=== PATIENT | male | born 1965 | race Caucasian/White ===

== ENCOUNTER 2019-12-15 12:45 | Outpatient (CLI) | payer MEDICARE, MEDICAID, SELFPAY ==
--- NOTE | ~2019-12-15 | CT_ITS ---
EXAMINATION: CT lung screening DATE: 12/15/2019 13:17 INDICATION: Lung cancer screening TECHNIQUE: Computed tomography (CT) of the chest was performed without intravenous contrast. The dose -length product was 298.88 mGy-cm. Automated exposure control and iterative reconstruction technique were employed. COMPARISON: None FINDINGS: No thoracic lymphadenopathy. Heart size normal. No pleural or pericardial effusion. There i s atherosclerosis of the coronary arteries. There is mild emphysema. There are a few small 2-3 mm gerald undglass nodules in the upper lobes. No focal airspace consolidation. No pneumothorax. No endobronchi al lesions. There are multiple mild wedge compression deformities of the thoracic spine, likely chron ic. IMPRESSION: 1. Lung-RADS category 2: Benign appearance or behavior. Continue annual screening with noncontrast lo w-dose chest CT in 12 months. Reviewed, dictated and finalized at location A. UCTION PLANNER IMPRESSION: 1. Lung-RADS category 2: Benign appearance or behavior. Continue annual screeni ng with noncontrast low-dose chest CT in 12 months.
== END 2019-12-15 12:46 | disposition home or self-care (01) ==
LOC: CHSIMG 12:47
PROVIDERS: PCP Internal Medicine; Visit Provider Internal Medicine
DX: Z12.2 Encounter for screening for malignant neoplasm of respiratory organs (principal); Z87.891 Personal history of nicotine dependence
CPT/HCPCS: G0297

== ENCOUNTER 2021-03-13 00:23 | Emergency (ER) | payer MEDICARE, MEDICAID, SELFPAY ==
[2021-03-13 00:23] VITALS: BP 160/96; PULSE 83; RESP 20; TEMP 36.1; O2SAT 98
--- NOTE | 2021-03-13 00:36 | ED.UPPEXIN ---
HPI - Extremity Injury (Upper) General Chief Complaint: Extremity Injury, Upper Stated Complaint: PAIN Source: patient and family Mode of arrival: ambulatory Limitations: no limitations History of Present Illness HPI narrative: This is a 55-year-old gentleman that presents with some left arm pain with numbness into his fingers with neck pain and stiffness has started earlier this evening has good range of motion of his arm although it is limited secondary to pain and numbness in his 1st 2 fingers. No known injuries no fever chills no blurry vision no headache no nausea or vomiting. MD complaint: injury to: left Onset (ago): hour(s) Other injuries: none Handedness: right Place: home Severity: moderate Severity scale (1-10): 6 Relieving factors: none Exacerbating factors: none Related Data Home Medications Medication Instructions Recorded Confirmed aspirin 81 mg tablet,delayed 81 mg PO DAILY 03/01/21 03/13/21 release atorvastatin 40 mg tablet 40 mg PO DAILY 03/01/21 03/13/21 clopidogrel 75 mg tablet 75 mg PO DAILY 03/01/21 03/13/21 dexlansoprazole 30 mg 30 mg PO DAILY 03/01/21 03/13/21 capsule,biphase delayed release fenofibrate 160 mg tablet 160 mg PO DAILY 03/01/21 03/13/21 lamotrigine 300 mg tablet,extended See Rx Instructions PO DAILY 03/01/21 03/13/21 release 24 hr metformin 500 mg tablet,extended 500 mg PO BID 03/01/21 03/13/21 release 24 hr metoprolol succinate 50 mg 50 mg PO DAILY 03/01/21 03/13/21 tablet,extended release 24 hr topiramate 100 mg tablet 100 mg PO BID 03/01/21 03/13/21 Allergies Allergy/AdvReac Type Severity Reaction Status Date / Time pine Allergy unknown Uncoded 03/01/21 13:46 Review of Systems Review of Systems: All systems reviewed & are unremarkable except as noted in HPI and below PMFSH Past Medical History Medical History Seizures Social History Social History Smoking status: Current every day smoker Substance use: never Exam Const: General: no acute distress Orientation/consciousness: patient oriented x3 HENMT: Head: normal to inspection Eyes: Conjunctivae: conjunctivae normal Pupils: Equal, round and reactive pupils present Neck: Neck: normal visual inspection, no lymphadenopathy and no meningeal signs Chest: Chest palpation & inspection: normal inspection of the chest Resp: Effort & Inspection: normal respiratory effort Auscultation: clear to auscultation bilaterally Cardio: Rate: regular rate Rhythm: regular rhythm GI: GI Palp: Yes Soft to palpation Percussion: Yes normal to percussion Back/Spine/Pelvis: Back: no CVA tenderness Skin: General skin exam: normal color Rashes: no rashes Neuro: General: patient oriented x3, moves all extremities, no meningeal signs and no focal motor deficits Extrem: General: normal to inspection and no pedal edema Other: reduced range of motion in his left arm with empty can sign limited range of motion in the rotator cuff with some pain and tenderness in the left paracervical area with numbness and tingling in his 1st and 2nd finger Psych: Appearance: grossly normal Mental Status: mental status grossly normal Affect: normal affect Thought content: Yes Normal thought content present Course Course Emergency Course: patient received Toradol which offered moderate pain relief and advised him to follow-up with his primary care physician. Critical Care Time Critical Care Time Critical Care Time: No Discharge Plan Discharge Clinical Impression: Cervical radiculopathy Patient Disposition: Home, Self-Care Condition: Stable Instructions: Antibiotic Form, Cervical Radiculopathy (ED) Additional Instructions: take medicine as prescribed and follow-up with primary care physician within 1 week for further evaluation and treatment. Prescriptions: New oxycodone-acetaminophen [Per
[2021-03-13] MEDS: KETOROLAC (*BKC) 60 MG/2 ML VIAL IM (00:39)
[2021-03-13 00:49] VITALS: BP 160/96; PULSE 83; RESP 20; TEMP 36.1; O2SAT 97
== END 2021-03-13 00:57 | disposition home or self-care (01) ==
PROVIDERS: Emergency Provider Emergency Medicine; PCP Internal Medicine
DX: M54.12 Radiculopathy, cervical region (principal)
CPT/HCPCS: 96372; 99283; J1885

== ENCOUNTER 2021-09-07 15:01 | Outpatient (CLI) | payer MEDICARE, MEDICAID, SELFPAY ==
--- NOTE | ~2021-09-07 | CT_ITS ---
EXAMINATION: CT lung screening DATE: 09/07/2021 15:20 INDICATION: Personal history of tobacco dependence, current smoker with 36 pack year history TECHNIQUE: Computed tomography (CT) of the chest was performed without intravenous contrast. The dose -length product (DLP) was 252.94 mGy-cm. Automated exposure control and iterative reconstruction tech [place] were employed. COMPARISON: 12/15/2019 FINDINGS: There is mild emphysema. There are small stable to 3 mm nodules in the upper lobes. No new or suspicious pulmonary nodules identified. The lungs are free of acute opacities. There is no pleura l effusion or pneumothorax. No pathologically enlarged thoracic lymph nodes are identified. The heart size is normal. Calcified coronary artery atherosclerosis is noted. There is unchanged T4 compressio n fracture. IMPRESSION: 1. Lung-RADS category 2: Benign appearance or behavior. Continue annual screening with noncontrast lo w-dose chest CT in 12 months. Reviewed, dictated and finalized at location B. AST CLEANING MACHINE OPERATOR IMPRESSION: 1. Lung-RADS category 2: Benign appearance or behavior. Continue annual screeni ng with noncontrast low-dose chest CT in 12 months.
== END 2021-09-07 15:02 | disposition home or self-care (01) ==
LOC: CHSIMG 15:02
PROVIDERS: PCP Internal Medicine; Visit Provider Internal Medicine
DX: Z87.891 Personal history of nicotine dependence (principal)
CPT/HCPCS: 71271

== ENCOUNTER 2022-12-04 14:01 | Outpatient (CLI) | payer MEDICARE, MEDICAID, SELFPAY ==
--- NOTE | ~2022-12-04 | CT_ITS ---
EXAMINATION: CT lung screening DATE: 12/04/2022 14:20 INDICATION: Personal history of nicotine dependence, current smoker with 35 pack year history TECHNIQUE: Computed tomography (CT) of the chest was performed without intravenous contrast. The dose -length product (DLP) was 340.39 mGy-cm. Automated exposure control and iterative reconstruction tech Linkoveryque were employed. COMPARISON: 11/07/2020 FINDINGS: There is mild emphysema. The lungs are free of acute opacities. Again noted are stable nodu les of the upper lobes measuring up to 3 mm. No pathologically enlarged thoracic lymph nodes are iden tified. The heart size is normal. Calcified coronary artery atherosclerosis is noted. A chronic T4 co mpression fracture is again noted. IMPRESSION: 1. Lung-RADS category 2: Benign appearance or behavior. Continue annual screening with noncontrast lo w-dose chest CT in 12 months. Reviewed, dictated and finalized at location B. DEVELOPER IMPRESSION: 1. Lung-RADS category 2: Benign appearance or behavior. Continue annual screeni ng with noncontrast low-dose chest CT in 12 months.
== END 2022-12-04 14:02 | disposition home or self-care (01) ==
LOC: CHSIMG 14:03
PROVIDERS: PCP Internal Medicine; Visit Provider Internal Medicine
DX: Z12.2 Encounter for screening for malignant neoplasm of respiratory organs (principal); Z87.891 Personal history of nicotine dependence
CPT/HCPCS: 71271

== ENCOUNTER 2023-06-16 19:36 | Emergency (ER) | payer MEDICARE, MEDICAID, SELFPAY ==
[2023-06-16] VITALS (9 sets, daily range): BP systolic 101–142; BP diastolic 76–84; PULSE 63–78; RESP 14–20; TEMP 36.9–37; O2SAT 93–99
--- NOTE | ~2023-06-16 | XR_ITS ---
EXAMINATION: XR hip RT 2V w AP pelvis INDICATION: Right hip pain, initial encounter TECHNIQUE: AP view the pelvis and two views of the right hip are obtained. COMPARISON: None available FINDINGS: There is an acute subcapital fracture of the right femoral neck. The femoral heads are seat ed in their acetabula. No additional fracture is identified. Surgical clips are noted in the medial r ight thigh. IMPRESSION: 1. Acute subcapital right femoral neck fracture. Reviewed, dictated and finalized at location F.
[2023-06-16 19:46] LABS: Glucose Point of Care 126 mg/dl (65-105)
[2023-06-16] MEDS: KETOROLAC (*BKC) 60 MG/2 ML VIAL IM (20:22)
--- NOTE | 2023-06-16 20:25 | ECG_ITS ---
Measurements Intervals [place] Rate: 71 P: 55 ID: [id number] QRS: 29 QRSD: 91 T: 36 QT: 399 QTc: 434 Interpretive Statements SINUS RHYTHM LOW QRS VOLTAGE IN PRECORDIAL LEADS [QRS DEFLECTION < 1.0 mV IN CHEST LEADS] NONSPECIFIC T-WAVE FLATTENING POOR R-WAVE PROGRESSION/CANNOT EXCLUDE PREVIOUS ANTEROSEPTAL OH ABNORMAL ECG NO PREVIOUS ECG AVAILABLE FOR COMPARISON Electronically Signed On 06-17-2023 7:19:28 CDT by Ismael Love M.D.
--- NOTE | 2023-06-16 20:26 | PC.NURSE ---
2014-PT RETURNS FROM IMAGING VIA [facility]RETCH[facility], ESCORTED BY KAND[facility] TECH. 1957-PT TRANSPORTED VIA HOSPITAL STRETCHER, ESCORTED BY FROG FARMER.
--- NOTE | 2023-06-16 20:52 | PC.NURSE ---
2049-PHYSICIAN AT BEDSIDE DISCUSSING RESULTS AND PLAN OF CARE WITH PT.
[2023-06-16] MEDS: SODIUM CHLORIDE 0.9% IV 1,000 ML 999 ML IV CONT (21:04)
[2023-06-16] MEDS: MORPHINE SULFATE (*CRX) 4 MG/ML INJ IV PUSH (21:05)
--- NOTE | 2023-06-16 21:39 | ED.FALL ---
HPI - Fall General Chief Complaint: Fall Stated Complaint: Fall Source: patient and EMS Mode of arrival: EMS Limitations: physical limitation History of Present Illness HPI Narrative: this is 58-year-old male that presents from home after he called EMS after he sustained a ground level fall he tripped while in the garage and caused pain and tenderness to the medial aspect of his right with decreased range of motion secondary to pain that he rates at about a 10/10, patient denies any other injuries, no head injury no nausea vomiting no loss of consciousness no headaches no blurry vision no back pain no abdominal pain no chest pain. complaint: fall Onset (ago): hour(s) Fall from: standing Fall witnessed: no Place fall occurred: home Loss of consciousness: none Prolonged down time: no Related Data Home Medications Medication Instructions Recorded Confirmed aspirin 81 mg tablet,delayed 81 mg PO DAILY 03/01/21 06/16/23 release atorvastatin 40 mg tablet 40 mg PO DAILY 03/01/21 06/16/23 clopidogrel 75 mg tablet 75 mg PO DAILY 03/01/21 06/16/23 fenofibrate 160 mg tablet 160 mg PO DAILY 03/01/21 06/16/23 metformin 500 mg tablet,extended 500 mg PO BID 03/01/21 06/16/23 release 24 hr metoprolol succinate 50 mg 50 mg PO DAILY 03/01/21 06/16/23 tablet,extended release 24 hr carbamazepine 400 mg 400 mg PO BID 06/16/23 06/16/23 tablet,extended release,12 hr lamotrigine 200 mg tablet 300 mg PO BID 06/16/23 06/16/23 Allergies Allergy/AdvReac Type Severity Reaction Status Date / Time pine Allergy unknown Uncoded 03/30/23 13:55 Review of Systems Review of Systems: All systems reviewed & are unremarkable except as noted in HPI and below PMFSH Past Medical History Medical History Seizures Social History Social History Smoking status: Current every day smoker Alcohol intake: never Substance use: current Substance use type: marijuana Lack of Transportation: No Lack of Food: Never True Current Housing: I Have Housing Concerned About Future Housing: No Difficulty Paying Gas/Electric Bills: No Difficulty Paying for Meds: No Currently Unemployed: No Education: High School Diploma/GED Difficulty w/ Childcare or Family Care: No Living arrangements: with family Exam Const: General: no acute distress and ill appearing Limitations: no limitations Eyes: Conjunctivae: conjunctivae normal EOM: EOMs intact bilaterally Direct Ophthalmoscopy: no photophobia Neck: Neck: normal visual inspection Resp: Effort & Inspection: normal respiratory effort Auscultation: clear to auscultation bilaterally Cardio: Rate: regular rate Rhythm: regular rhythm GI: GI Palp: Yes Soft to palpation Auscultation: normal bowel sounds : General: Yes bladder normal to palpation Back/Spine/Pelvis: Back: no CVA tenderness Skin: General skin exam: normal color Rashes: no rashes Neuro: General: patient oriented x3, no meningeal signs and no focal motor deficits Cranial nerves: Yes Nystagmus not present Speech: normal speech Psych: Mental Status: mental status grossly normal Affect: normal affect Course Course Emergency Course: X-ray performed shows a fracture of the right hip EKG performed shows normal sinus rhythm, and labs reviewed with patient. The patient received IV fluids, IV Toradol and IV morphine for pain control. patient had blood work and his labs are unremarkable except for white count of 20.7, spoke to orthopedist and he accepted the patient for transfer as a consult and advised against antibiotics at this time. Spoke to hospitalist at [facility] which accepted the patient for transfer. Vital Signs Vital signs: Vital Signs Temperature 36.9 C 06/16/23 19:36 Temperature 37.0 C 06/16/23 19:37 Pulse Rate 63 06/16/23 19:37 Respiratory Rate 14 06/16/23 19:37
[2023-06-16 21:57] LABS: Hematocrit 42.9 % (40.0-54.0); Hemoglobin 13.8 g/dL (14.0-18.0); Mean Corpuscular HGB Conc 32.2 g/dL (32.0-36.0); Mean Corpuscular Hemoglobin 31.4 pg (27.0-31.0); Mean Corpuscular Volume 97.7 fL (78.0-102.0); Mean Platelet Volume 9.2 fl (8.7-11.0); Platelet Count Result 284 K/mm3 (150-420); Red Blood Count 4.39 M/mm3 (4.70-6.10); Red Cell Distribution Width 13.5 % (11.6-14.4)
[2023-06-16 22:07] LABS: White Blood Count 20.7 K/mm3 (4.8-10.8)
[2023-06-16 22:14] LABS: Alanine Aminotransferase 25 U/L (16-63); Albumin Level 3.7 g/dL (3.4-5.0); Alkaline Phosphatase 76 U/L (46-116); Anion Gap 10 mmol/L (8-16); Aspartate Amino Transferase 14 U/L (15-37); Bilirubin,Total 0.4 mg/dL (0.00-1.00); Blood Urea Nitrogen 19 mg/dL (7-18); Calcium 8.6 mg/dL (8.5-10.1); Carbon Dioxide 23 mmol/L (21-32); Chloride 104 mmol/L (98-108); Creatine Kinase 114 U/L (39-308); Estimated CRCL calculation 62 ml/min; Estimated Glomerular Filt Rate 59; Glucose 125 mg/dL (70-99); Osmolality Calculated 287 mOsm/kg (285-295); Potassium 3.9 mmol/L (3.5-5.1); Sodium 137 mmol/L (136-145); Total Protein 7.6 g/dL (6.4-8.2)
[2023-06-16 22:15] LABS: Partial Thromboplastin Time 27.3 SEC (23.90-30.70); Prothrombin Time 10.5 Seconds (9.50-12.10)
[2023-06-16 22:56] LABS: Band Neutrophils Percent 0 % (0-6); Eosinophils Absolute Manual 0.41 K/mm3 (0.02-0.5); Eosinophils Percent Manual 2 % (1-6); Lymphocytes Absolute Manual 1.24 K/mm3 (1.1-4.5); Lymphocytes Percent Manual 6 % (18-44); Monocytes Absolute Manual 0.41 K/mm3 (0.1-0.90); Monocytes Percent Manual 2 % (3-9); Neutrophils Absolute Manual 18.42 K/mm3 (1.3-6.7); Neutrophils Percent Manual 89 % (46-73); Total Cells Counted 100
[2023-06-16 22:57] LABS: Basophils Percent Manual 1 % (0-1); Platelet Estimate Adequate (Adequate); Schistocytes None Seen (NORMAL)
--- NOTE | 2023-06-16 23:36 | PC.NURSE ---
4650- PT SIGNIFICANT OTHER STATES LEAVING FOR THE NIGHT AT THIS TIME. SHE LEAVES A CONTACT NUMBER FOLLOWS; [phone],JULIANNA. 5776-PT SIGNIFICANT OTHER APPROACHES NURSING STATION AND INQUIRING FOR UPDATE AND PROVIDED WITH UPDATED PLAN OF CARE. SIGNIFICANT OTHER ALSO STATES PT EXPRESSING CONCERN FOR HAVING NIGHT MEDS (SPECIFICALLY SEIZURE MEDS) AND EATING. SILK OPENER ARRIVES TO BEDSIDE AND SPOKE WITH PT REGARDING CONCERNS. SILK OPENER REMINDED PT AGAINST EATING/DRINKING PER PHYSICIAN ORDERS DUE TO STATUS. PT VERBALIZED UNDERSTANDING. REGARDING PT MEDICATIONS. DR PEPPER MADE AWARE AND ADVISED HOME MEDICATIONS WOULD BE CONTINUED AT THE TIME OF TRANSFER/ADMISSION AT [facility]. SILK OPENER RELAYED INFORMATION TO PT AND HE VERBALIZED UNDERSTANDING. PT DENIES ANY ADDITIONAL NEEDS AT THIS TIME. CALL LIGHT REMAINS IN REACH.
[2023-06-17] VITALS: BP 144/91; PULSE 71; RESP 16; O2SAT 96
--- NOTE | 2023-06-17 00:24 | PC.NURSE ---
0024-[facility]BA[facility] ARRIVES TO ER
--- NOTE | 2023-06-17 00:36 | PC.NURSE ---
0035-PT TRANSFERRED TO EMS STRETCHER, WITHOUT INCIDENT. PT HAS HIS BLACK ANDROID PHONE IN HIS POSSESSION AT TIME OF TRANSFER. PT SIGNIFICANT OTHER HAS OPTED TO TAKE PT CLOTHING WITH HER WHEN SHE LEFT EARLIER IN THE NIGHT. PT IS IN NAD AT TIME OF TRANSFER.
--- NOTE | 2023-06-23 12:46 | PC.NURSE ---
blood culture reviewed, no growth after 5 days
== END 2023-06-17 00:35 | disposition short-term general hospital (02) ==
PROVIDERS: Emergency Provider Emergency Medicine; PCP Internal Medicine
DX: S72.011A Unspecified intracapsular fracture of right femur, initial encounter for closed fracture (principal); W01.0XXA Fall on same level from slipping, tripping and stumbling without subsequent striking against object, initial encounter; G40.909 Epilepsy, unspecified, not intractable, without status epilepticus; F17.210 Nicotine dependence, cigarettes, uncomplicated; F12.90 Cannabis use, unspecified, uncomplicated; Z79.84 Long term (current) use of oral hypoglycemic drugs; Z79.02 Long term (current) use of antithrombotics/antiplatelets; Z79.82 Long term (current) use of aspirin
CPT/HCPCS: 36415; 73502; 80053; 82550; 82948; 83605; 85025; 85610; 85730; 87040; 93005; 96361; 96372; 96374; 99285; J1885; J2270; J7030

== ENCOUNTER 2023-06-17 01:33 | Inpatient (IN) | payer MEDICARE, MEDICAID, SELFPAY ==
[2023-06-17] VITALS (7 sets, daily range): BP systolic 129–164; BP diastolic 75–93; PULSE 62–83; RESP 12–16; TEMP 36–37.5; O2SAT 91–97; BMI 29.5
--- NOTE | ~2023-06-17 | XR_ITS ---
EXAMINATION: XR hip RT min 2V DATE: 06/18/2023 16:57 INDICATION: Bipolar type right hip hemiarthroplasty TECHNIQUE: Anteroposterior and cross-table lateral views of the right hip were obtained. COMPARISON: 06/16/2023 FINDINGS: Interval resection of the fractured right femoral head and neck and placement of a noncemented bipola r type right hip hemiarthroplasty which appears well seated in near-anatomic alignment. No other frac tures identified. Surgical clips at the right groin and proximal thigh which could be related to prio r saphenous vein graft harvest. IMPRESSION: 1. Newly placed bipolar type right hip hemiarthroplasty in near-anatomic alignment, negative for post operative purposes. Reviewed, dictated and finalized at location A. IMPRESSION: 1. Newly placed bipolar type right hip hemiarthroplasty in near-anatomic alignm ent, negative for postoperative purposes.
--- NOTE | ~2023-06-17 | XR_ITS ---
EXAMINATION: XR chest 1V portable DATE: 06/17/2023 05:59 INDICATION: Leukocytosis. TECHNIQUE: A single frontal view of the chest was obtained. COMPARISON: Chest CT 12/04/2022 FINDINGS: There is no pneumonia, pleural effusion, or pneumothorax. The heart size is normal. IMPRESSION: 1. No acute cardiopulmonary disease. Reviewed, dictated and finalized at location A.
--- NOTE | ~2023-06-17 | US_ITS ---
US renal BI 06/18/2023 08:20 Procedure: Realtime transabdominal ultrasound of the kidneys and bladder. Indication: Urinary outflow obstruction Comparison: No prior studies for comparison. Findings: Renal echotexture is normal bilaterally without hydronephrosis, contour deforming mass or r enal calculus. The right kidney measures 11.4 cm and left kidney measures 13.5 cm. There is a Madison c atheter in the bladder. Incidental note is made of hepatomegaly with fatty infiltration of the liver. Impression: 1: Unremarkable renal ultrasound. No stones, masses or hydronephrosis. 2: Hepatomegaly with diffuse fatty infiltration. Reviewed, dictated and finalized at location B. Impression: 1: Unremarkable renal ultrasound. No stones, masses or hydronephrosis. 2: Hepatomegaly with diffuse fatty infiltration.
--- NOTE | 2023-06-17 01:36 | PC.NURSE ---
This patient, Wally Powell, was admitted to [address] [place] [address] Room 330-02. Patient/family oriented to hospital policies and general routines including ID bracelet, bed and alarms, visiting hours, pain management, procedures, bathroom and other care routines, personal items, smoking policy, room service/diet, and visiting hours. Information on how to activate the Rapid Response Team has been discussed. Patient/Family are encouraged to report perceived risks to care and to ask questions if they do not understand what they are told or what they should do.
[2023-06-17] MEDS: MORPHINE SULFATE (*CRX) 4 MG/ML INJ IV PUSH ×5 (02:02→22:05)
[2023-06-17] MEDS: SODIUM CHLORIDE 0.9% IV 1,000 ML 100 ML IV CONT ×3 (02:35→22:08)
--- NOTE | 2023-06-17 05:49 | PM.IMHP ---
H&P: HPI History of Present Illness Date/Time: 06/17/23 05:49 Chief Complaint: Fall with hip pain Narrative: 58-year-old male with a past medical history of hyperlipidemia, seizure disorder and peripheral artery disease who presented to the ER at [facility] via EMS after a fall. Patient reportedly tripped over a piece of lawn equipment and fell. He had immediate pain in his right hip. He tried to get up and walk with a walker that he had at the house. He was unable to do so after about 15 or 20 minutes of trying although he did make it up cross the garage. The pain was unbearable and he decided to call for help. He went to [facility]. He was evaluated and found to have a right nondisplaced femoral neck fracture. He was transferred to our facility for further evaluation. At the outside facility he did receive some morphine. He also received some IV fluids. His white count at the outside facility was 20,000 without a shift. He he denies any lightheadedness prior to his fall he denies any chest pain. He has not had any cough or congestion. He is a chronic smoker. He does have a history of a bilateral of fem-pop bypass but has bounding pulses in lower extremities. He denies any claudication symptoms. He denies any wounds. He has not had any fevers or chills. Review of Systems Review of Systems: 12 systems were reviewed with pertinent positives and negatives per HPI. Except as documented in the HPI, all other systems were reviewed and are negative. He does have peripheral neuropathy. [facility] Past Medical History Medical History (Updated 06/18/23 @ 00:01 by Emilio Valentine) BPH (benign prostatic hyperplasia) Closed subcapital fracture of neck of right femur May 2023 Diabetic peripheral neuropathy Essential hypertension Hyperlipidemia Peripheral artery disease Seizures Type 2 diabetes mellitus Surgical History Surgical History History of femoropopliteal bypass Bilateral approximately 2014 Family History Family History Father Age older than 80 years Mother Diabetes mellitus Social History Social History Social History: He lives with his significant other of 12 years. They have 2 dogs and 5 cats. He does not have any children. 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 He still smokes 1 pack of cigarettes per day and has done so since he was 15 years old. Code status: Full code Surrogate decision maker: Georgina Duff (significant other) Smoking packs per day: 1 Smoking cigarettes per day: 20.0 Years smoked: 43 Smoking pack-years: 43.00 Smoking status: Current every day smoker Tobacco type: cigarettes Alcohol intake: former Alcohol use details: He was an alcoholic but quit drinking 1997 Substance use: former Substance use type: marijuana and crack/cocaine Lack of Transportation: No Lack of Food: Never True Current Housing: I Have Housing Concerned About Future Housing: No Difficulty Paying Gas/Electric Bills: No Difficulty Paying for Meds: No Currently Unemployed: No Education: High School Diploma/GED Difficulty w/ Childcare or Family Care: No Living arrangements: with family Spiritual care concerns: No Meds Home Medications and Allergies Home Medications Medication Instructions Recorded Confirmed Type aspirin 81 mg tablet,delayed 81 mg PO HS 03/01/21 06/17/23 History release atorvastatin 40 mg tablet 40 mg PO DAILY 03/01/21 06/17/23 History clopidogrel 75 mg tablet 75 mg PO DAILY 03/01/21 06/17/23 History fenofibrate 160 mg tablet 160 mg PO DAILY 03/01/21 06/17/23 History metformin 500 mg tablet,extended 500 mg PO BID 03/01/2105/30
[2023-06-17 07:13] LABS: Basophils Absolute Auto 0.1 K/mm3 (0.0-0.1); Basophils Percent Auto 0.3 % (0.2-1.2); Eosinophils Absolute Auto 0.1 K/mm3 (0-0.3); Eosinophils Percent Auto 0.9 % (0-4.4); Hematocrit 40.8 % (42.0-52.0); Hemoglobin 12.8 g/dL (14.0-18.0); Immature Granulocyte Absolute 0.07 K/mm3 (0.00-0.031); Immature Granulocyte Percent A 0.5 % (0-0.5); Lymphocytes Absolute Auto 2.09 K/mm3 (0.9-3.2); Lymphocytes Percent Auto 14.3 % (18.3-44.2); Mean Corpuscular HGB Conc 31.4 g/dl (32-36); Mean Corpuscular Volume 98.8 fl (80-100); Mean Platelet Volume 9.3 fl (7.4-10.4); Monocytes Percent Auto 7.1 % (2.6-8.5); Neutrophils Absolute Auto 11.2 K/mm3 (1.3-6.7); Neutrophils Percent Auto 76.9 % (45.5-73.1); Platelet Count Result 238 k/mm3 (150-375); Red Blood Count 4.13 M/mm3 (4.6-6.20); Red Cell Distribution Width 13.8 % (11.5-14.5); White Blood Count 14.6 K/mm3 (4.5-10.0)
[2023-06-17 07:23] LABS: Anion Gap 6 mmol/L (8-16); Blood Urea Nitrogen 15 mg/dL (9-20); Calcium 8.4 mg/dL (8.4-10.2); Carbon Dioxide 24 mmol/L (22-30); Chloride 108 mmol/L (98-107); Estimated CRCL calculation 84 ml/min; Estimated Glomerular Filt Rate > 60; Glucose 121 mg/dL (65-110); Potassium 3.9 mmol/L (3.4-5.0); Sodium 138 mmol/L (137-145)
[2023-06-17 07:29] LABS: Glucose Point of Care 109 mg/dl (65-105)
--- NOTE | 2023-06-17 08:44 | PM.CNOR ---
Assessment and Plan Assessment and plan (1) Closed subcapital fracture of neck of right femur: Qualifiers: Encounter type: initial encounter Qualified Code(s): S72.011A - Unspecified intracapsular fracture of right femur, initial encounter for closed fracture Code(s): S72.011A - Unspecified intracapsular fracture of right femur, initial encounter for closed fracture Status: Acute Plan 58-year-old male with an acute subcapital femoral neck fracture right hip. His best course of treatment since this is [place] type 4 is going to be bipolar hip replacement. We discussed this in detail. Did review risks as well as potential complications and expected rehab. He has and creased risk for wound healing complications because of his peripheral vascular disease, smoking and poor dentition. The teeth will need to be addressed as an outpatient when he is able to. He is chronically on aspirin and Plavix. Has not had any since yesterday. Lovenox will be held today. He is anemic. Did have and markedly elevated white count which has come down. Probably demargination from the trauma. Plan on surgery tomorrow pending final medical clearance. Thank you for consultation. History of Present Illness HPI Consult date: 06/17/23 Consult reason: fracture Chief complaint: Right Femoral Neck Fx Narrative: 58-year-old male who fell at home yesterday suffering a displaced right femoral neck fracture. He was initially seen in the ER in [place] then transferred here for further evaluation and management. No other injuries with this occurrence. History significant for seizure disorder diagnosed at age [age]. Is also a pack per day smoker and has been so for many years. History of peripheral vascular disease and is status post lower extremity bypass surgery. Diabetic. Unknown last A1c. Review of Systems Review of Systems: 12 systems were reviewed with pertinent positives and negatives per HPI. Except as documented in the HPI, all other systems were reviewed and are negative. He does have peripheral neuropathy. Constitutional: Constitutional: Denies anorexia Eyes: Eyes: Denies irritation and Denies loss of vision ENT: Reports Normal hearing present Cardiovascular: Cardiovascular: Denies chest pain and Denies dyspnea on exertion Respiratory: Respiratory: Denies cough and Denies dyspnea on exertion Gastrointestinal: Gastrointestinal: Denies abdominal pain and Denies bloating Genitourinary: Genitourinary: Denies dysuria Musculoskeletal: Musculoskeletal: Denies arthralgias Integumentary/Breasts: Skin/Breast: Denies skin ulcer Neurologic: Reports Normal hearing present and Denies loss of vision Hematologic/Lymphatic: Hematologic/Lymphatic: Denies easy bleeding PMFSH Past Medical History Medical History (Updated 06/17/23 @ 08:51 by Christoph Mcleod MD) BPH (benign prostatic hyperplasia) Closed subcapital fracture of neck of right femur May 2023 Diabetic peripheral neuropathy Essential hypertension Hyperlipidemia Peripheral artery disease Seizures Type 2 diabetes mellitus Surgical History Surgical History History of femoropopliteal bypass Bilateral approximately 2014 Family History Family History Father Age older than 80 years Mother Diabetes mellitus Social History Social History Social History: He lives with his significant other of 12 years. They have 2 dogs and 5 cats. He does not have any children. 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 He still smokes 1 pack of cigarettes per day and has done so since he was 15 years old. Code status: Full code Surrogate decision maker: Georgina Duff (michael
[2023-06-17] MEDS: FENOFIBRATE 160 MG TABLET PO (08:55)
[2023-06-17] MEDS: lamoTRIgine 100 MG TABLET 300 MG PO (08:55)
[2023-06-17] MEDS: CARBAMAZEPINE XR 200 MG TAB.ER.12H 400 MG PO ×2 (08:55→22:02)
[2023-06-17] MEDS: ATORVASTATIN 40 MG TABLET PO (08:56)
[2023-06-17] MEDS: TAMSULOSIN HCL 0.4 MG CAPSULE PO (08:56)
[2023-06-17] MEDS: METOPROLOL SUCCINATE EXT REL 50 MG TABCR PO (08:56)
[2023-06-17] MEDS: TOPIRAMATE 100 MG TABLET PO ×2 (08:56→16:39)
[2023-06-17] MEDS: metFORMIN HCL XR 500 MG TAB.SR.24H PO ×2 (08:56→16:38)
[2023-06-17 11:08] LABS: Appearance Urine Clear (Clear); Bacteria Urine None Seen /hpf; Bilirubin Urine Negative (Negative); Blood Urine 1+ (Negative); Color Urine Yellow (Yellow); Glucose Urine UA Negative (Negative); Ketones Urine Negative (Negative); Leukocyte Esterase Ur Negative LEU/UL (Negative); Need Manual Microscopic Reviewed; Nitrate Urine Negative (Negative); Protein Urine Negative (Negative); Specific Grav Ur 1.019 (1.001-1.035); Squamous Epithelial Cell Urine Occasional /hpf (Few)
[2023-06-17 11:09] LABS: Add Urine Microscopic? YES
[2023-06-17 11:16] LABS: Glucose Point of Care 115 mg/dl (65-105)
--- NOTE | 2023-06-17 12:40 | PM.IMPN ---
Progress Note: A&P Assessment and Plan (1) Closed subcapital fracture of neck of right femur: Qualifiers: Encounter type: initial encounter Qualified Code(s): S72.011A - Unspecified intracapsular fracture of right femur, initial encounter for closed fracture Code(s): S72.011A - Unspecified intracapsular fracture of right femur, initial encounter for closed fracture Status: Acute Assessment and Plan: 06/17: Seen by orthopedics today plan for right bipolar hip replacement tomorrow. (2) Urinary retention due to benign prostatic hyperplasia: Code(s): N40.1 - Benign prostatic hyperplasia with lower urinary tract symptoms; R33.8 - Other retention of urine Status: Acute Assessment and Plan: 06/17: Postvoid residual 850 mL with palpable bladder distension. Nursing staff unable to pass Madison catheter x2, urology consulted. Appreciate assistance and catheter placement and management. (3) Type 2 diabetes mellitus: Qualifiers: Diabetes mellitus residential insulin use: without terminal superintendent use Diabetes mellitus complication status: with neurologic complications Diabetes mellitus complication detail: with polyneuropathy Qualified Code(s): E11.42 - Type 2 diabetes mellitus with diabetic polyneuropathy Code(s): E11.9 - Type 2 diabetes mellitus without complications Status: Acute Assessment and Plan: 06/17: ACHS fingerstick glucose with insulin correction. (4) Essential hypertension: Code(s): I10 - Essential (primary) hypertension Status: Acute Assessment and Plan: 06/17: Resume home medications. Stable at this time. Blood pressure reviewed on 06/17 (5) Smoking: Code(s): F17.200 - Nicotine dependence, unspecified, uncomplicated Status: Acute Assessment and Plan: Nicotine patch ordered. (6) Hyperlipidemia: Code(s): E78.5 - Hyperlipidemia, unspecified Status: Acute Assessment and Plan: Continue home medications (7) History of seizures: Code(s): Z87.898 - Personal history of other specified conditions Status: Acute Assessment and Plan: Continue home medications no evidence of current or recent seizure activity Plan Urology consult for catheter placement Orthopedics to take patient to OR tomorrow for Right Bipolar Hip Replacement Time Spent With Patient Time with patient: 25 - 35 minutes Subjective Date/time seen: 06/17/23 12:40 Interval history: 06/17: Patient was admitted overnight transfer from [facility] [place] with fall with right subcapital femoral neck fracture. Patient to go to the operating room tomorrow for bipolar hip replacement. It was noted that patient has severe urinary retention with postvoid residual of 850 mL earlier today. Madison catheter was ordered and nursing unable to pass after 2 attempts. Urology to be consulted reported as appreciate assistance. Patient denies any nausea vomiting constipation diarrhea chest pain shortness a breath fever or chills. He states he has right hip pain he tried to ambulate with walker at home for a little while before calling assistance. He states some mild lower abdominal discomfort but otherwise has no acute complaints. Review of Systems Review of Systems: All systems reviewed & are unremarkable except as noted in HPI and below Exam Narrative: GENERAL: Generally well appearing, alert and oriented, in no apparent distress. Patient responds to questions in 1-2 word answers. HEENT: Pupils are equally round and briskly reactive to light. Extraocular muscles are intact. Oral mucous membranes are moist without lesions. NECK: The patient has no noted JVD. No adenopathy is appreciated. CHEST/LUNGS: Lungs are clear bilaterally without rhonchi, rales, or wheezes. There is no subcutaneous air appreciated. There is no tenderness to the chest wall. HEART: The patient has a regular rate and rhythm. No murmurs, rubs, or gallops
--- NOTE | 2023-06-17 14:23 | WPDURCON ---
Assessment and Plan Assessment and plan (1) Urinary retention due to benign prostatic hyperplasia: Code(s): N40.1 - Benign prostatic hyperplasia with lower urinary tract symptoms; R33.8 - Other retention of urine Status: Acute Assessment and Plan: I was unable to advance a wire to the bladder thus after obtaining verbal consent from the patient, the penis was prepped with betadine prep solution, a well lubricated cystoscope was advanced atraumatically into the bladder. Through the working channel a glide wire was advanced into the bladder and coiled, the cystoscope was removed and a 16F [place] advanced over the wire and into the bladder. 10 cc of sterile water placed in the balloon. A false passage was noted in the penile urethra. 1200 mL of urine drained. Plan 1. Maintain catheter at least 3-5 days. 2. Consider antibiotics to cover pathogens for 3-5 days. 3. Consider starting tamsulosin 0.4 mg QHS. 4. Consider Renal US to ensure no hydronephrosis. 5. Follow up in office for BPH work up including PSA and NICOLETTE. Satinder Senior MD [facility] Consult Note HPI Date Seen: 06/17/23 Requesting Physician: Paulina Macdonald DO Primary Care Provider: Hoang Marrero MD Consult Narrative Narrative: Wally Powell is a 58-year-old male with a past medical history of hyperlipidemia, seizure disorder and peripheral artery disease who presented to the ER at [facility] via EMS after a fall.? Patient reportedly tripped over a piece of lawn equipment and fell.? He had immediate pain in his right hip and was found to have a right nondisplaced femoral neck fracture.? ? He does have a history of a bilateral of fem-pop bypass but has bounding pulses in lower extremities.? He denies any claudication symptoms.? He denies any wounds.? He has not had any fevers or chills. On the floor he was found to have retention of greater than 800 mL. Catheter placement attempted twice by nursing. He has had several small volume voids. He denies hematuria or other concern. Review of Systems Constitutional: Constitutional: Reports as per HPI Eyes: Eyes: Reports as per HPI ENT: Reports system reviewed and no additional complaints, except as documented Cardiovascular: Cardiovascular: Reports as per HPI Respiratory: Respiratory: Reports as per HPI Genitourinary: Genitourinary: Reports no additional male genitourinary complaints Musculoskeletal: Musculoskeletal: Reports no additional musculoskeletal complaints Integumentary/Breasts: Skin/Breast: Reports system reviewed and no additional complaints, except as docu Neurologic: Reports system reviewed and no additional complaints, except as documented Psychiatric: Psychiatric: Reports no additional psychiatric complaints [facility] Past Medical History Medical History (Updated 06/17/23 @ 14:26 by Art Garcia APRN) BPH (benign prostatic hyperplasia) Closed subcapital fracture of neck of right femur May 2023 Diabetic peripheral neuropathy Essential hypertension Hyperlipidemia Peripheral artery disease Seizures Type 2 diabetes mellitus Surgical History Surgical History History of femoropopliteal bypass Bilateral approximately 2014 Family History Family History Father Age older than 80 years Mother Diabetes mellitus Social History Social History Social History: He lives with his significant other of 12 years. They have 2 dogs and 5 cats. He does not have any children. 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 He still smokes 1 pack of cigarettes per day and has done so since he was 15 years old. Code status: Full code Surrogate decision maker: Georgina Martinez
[2023-06-17 16:23] LABS: Glucose Point of Care 125 mg/dl (65-105)
[2023-06-17 19:47] LABS: Glucose Point of Care 120 mg/dl (65-105)
[2023-06-17] MEDS: lamoTRIgine 100 MG TABLET 200 MG PO (22:02)
[2023-06-18] VITALS (15 sets, daily range): BP systolic 107–179; BP diastolic 62–86; PULSE 65–90; RESP 12–18; TEMP 36.2–37.3; O2SAT 93–100
[2023-06-18 06:51] LABS: Basophils Absolute Auto 0.1 K/mm3 (0.0-0.1); Basophils Percent Auto 0.4 % (0.2-1.2); Eosinophils Absolute Auto 0.1 K/mm3 (0-0.3); Eosinophils Percent Auto 0.6 % (0-4.4); Hematocrit 39.4 % (42.0-52.0); Hemoglobin 12.6 g/dL (14.0-18.0); Immature Granulocyte Absolute 0.05 K/mm3 (0.00-0.031); Immature Granulocyte Percent A 0.4 % (0-0.5); Lymphocytes Absolute Auto 2.05 K/mm3 (0.9-3.2); Lymphocytes Percent Auto 14.7 % (18.3-44.2); Mean Corpuscular Hemoglobin 31.3 pg (26-34); Mean Platelet Volume 9.3 fl (7.4-10.4); Monocytes Absolute Auto 1.1 K/mm3 (0.1-0.6); Monocytes Percent Auto 7.9 % (2.6-8.5); Neutrophils Absolute Auto 10.6 K/mm3 (1.3-6.7); Platelet Count Result 235 k/mm3 (150-375); Red Blood Count 4.02 M/mm3 (4.6-6.20); Red Cell Distribution Width 13.7 % (11.5-14.5)
[2023-06-18] MEDS: MORPHINE SULFATE (*CRX) 4 MG/ML INJ IV PUSH ×2 (07:02→21:30)
--- NOTE | 2023-06-18 09:30 | PM.IMPN ---
Progress Note: A&P Assessment and Plan (1) Closed subcapital fracture of neck of right femur: Qualifiers: Encounter type: initial encounter Qualified Code(s): S72.011A - Unspecified intracapsular fracture of right femur, initial encounter for closed fracture Code(s): S72.011A - Unspecified intracapsular fracture of right femur, initial encounter for closed fracture Status: Acute Assessment and Plan: 06/17: Seen by orthopedics today plan for right bipolar hip replacement tomorrow. 06/18: Patient going to the OR this afternoon for bipolar hip replacement (2) Urinary retention due to benign prostatic hyperplasia: Code(s): N40.1 - Benign prostatic hyperplasia with lower urinary tract symptoms; R33.8 - Other retention of urine Status: Acute Assessment and Plan: 06/17: Postvoid residual 850 mL with palpable bladder distension. Nursing staff unable to pass Madison catheter x2, urology consulted. Appreciate assistance and catheter placement and management. 06/18: Catheter to remain in place until directed otherwise by Urology due to difficult placement requiring scope for placement by Urology. (3) Type 2 diabetes mellitus: Qualifiers: Diabetes mellitus chcf insulin use: without chcf use Diabetes mellitus complication status: with neurologic complications Diabetes mellitus complication detail: with polyneuropathy Qualified Code(s): E11.42 - Type 2 diabetes mellitus with diabetic polyneuropathy Code(s): E11.9 - Type 2 diabetes mellitus without complications Status: Acute Assessment and Plan: 06/17: ACHS fingerstick glucose with insulin correction. 06/18: Unchanged (4) Essential hypertension: Code(s): I10 - Essential (primary) hypertension Status: Acute Assessment and Plan: Resume home medications. Stable at this time. Blood pressure reviewed on 06/18 (5) Smoking: Code(s): F17.200 - Nicotine dependence, unspecified, uncomplicated Status: Acute Assessment and Plan: Nicotine patch ordered. (6) Hyperlipidemia: Code(s): E78.5 - Hyperlipidemia, unspecified Status: Acute Assessment and Plan: Continue home medications (7) History of seizures: Code(s): Z87.898 - Personal history of other specified conditions Status: Acute Assessment and Plan: Continue home medications no evidence of current or recent seizure activity Plan Orthopedics to take patient to OR today for Right Bipolar Hip Replacement Time Spent With Patient Time with patient: 15 - 25 minutes Subjective Date/time seen: 06/18/23 09:30 Interval history: 06/17: Patient was admitted overnight transfer from [facility] with fall with right subcapital femoral neck fracture. Patient to go to the operating room tomorrow for bipolar hip replacement. It was noted that patient has severe urinary retention with postvoid residual of 850 mL earlier today. Madison catheter was ordered and nursing unable to pass after 2 attempts. Urology to be consulted reported as appreciate assistance. Patient denies any nausea vomiting constipation diarrhea chest pain shortness a breath fever or chills. He states he has right hip pain he tried to ambulate with walker at home for a little while before calling assistance. He states some mild lower abdominal discomfort but otherwise has no acute complaints. 06/18: Patient reports that he is feeling better after Madison catheter was placed by Urology yesterday. And had to be placed with scope. Renal ultrasound unremarkable. Patient denies any new or worsening symptoms. Only complains of right hip pain and inability to ambulate due to fractured hip. Review of Systems Review of Systems: All systems reviewed & are unremarkable except as noted in HPI and below Exam Narrative: GENERAL: Generally well appearing, alert and oriented, in no apparent distress. Patient responds
[2023-06-18] MEDS: lamoTRIgine 100 MG TABLET 300 MG PO (09:44)
[2023-06-18] MEDS: CARBAMAZEPINE XR 200 MG TAB.ER.12H 400 MG PO ×2 (09:44→20:25)
[2023-06-18] MEDS: METOPROLOL SUCCINATE EXT REL 50 MG TABCR PO (09:44)
[2023-06-18] MEDS: LACTATED RINGERS 1,000 ML 30 ML IV CONT ×2 (11:50→16:18)
--- NOTE | 2023-06-18 12:37 | WPDANESEPPF ---
Anes - Initial Pre Proc Eval Procedure: Operation Date: 06/18/23 13:00 Proposed Procedures p Right Bipolar Hip Replacement(Right) - Christoph Mcledo MD Date/Time: 06/18/23 12:37 Surgeon: Paulina Macdonald DO Pre Op Diagnosis: Right Femoral Neck Fx Patient Data Age: 58 Gender: M Height: 1.83 m Weight: 98.6 kg Last Vital Signs Temp 36.6 C 06/18/23 12:05 Pulse 72 06/18/23 12:05 Resp 16 06/18/23 12:05 BP 147/84 H 06/18/23 12:05 Pulse Ox 95 06/18/23 12:05 O2 Del Method Room Air 06/18/23 12:05 Allergies Allergy/AdvReac Type Severity Reaction Status Date / Time pine Allergy unknown Uncoded 03/30/23 13:55 Home Medications Medication Instructions Recorded Confirmed Type aspirin 81 mg tablet,delayed 81 mg PO HS 03/01/21 06/17/23 History release atorvastatin 40 mg tablet 40 mg PO DAILY 03/01/21 06/17/23 History clopidogrel 75 mg tablet 75 mg PO DAILY 03/01/21 06/17/23 History fenofibrate 160 mg tablet 160 mg PO DAILY 03/01/21 06/17/23 History metformin 500 mg tablet,extended 500 mg PO BID 03/01/21 06/17/23 History release 24 hr metoprolol succinate 50 mg 50 mg PO DAILY 03/01/21 06/17/23 History tablet,extended release 24 hr carbamazepine 400 mg 400 mg PO BID 06/16/23 06/17/23 History tablet,extended release,12 hr lamotrigine 200 mg tablet 300 mg PO DAILY 06/16/23 06/17/23 History dexlansoprazole 30 mg 30 mg PO DAILY 06/17/23 06/17/23 History capsule,biphase delayed release lamotrigine 200 mg tablet 200 mg PO HS 06/17/23 06/17/23 History topiramate 100 mg tablet 100 mg PO BID 06/17/23 06/17/23 History Laboratory Tests 06/17/23 06/17/23 06/18/23 16:15 19:43 06:29 WBC 14.0 H K/mm3 (4.5-10.0) RBC 4.02 L M/mm3 (4.6-6.20) Hgb 12.6 L g/dL (14.0-18.0) Hct 39.4 L % (42.0-52.0) MCV 98.0 fl (80-100) MCH 31.3 pg (26-34) MCHC 32.0 g/dl (32-36) RDW 13.7 % (11.5-14.5) Plt Count 235 k/mm3 (150-375) MPV 9.3 fl (7.4-10.4) Immature Gran % (Auto) 0.4 % (0-0.5) Neut % (Auto) 76.0 H % (45.5-73.1) Lymph % (Auto) 14.7 L % (18.3-44.2) [place] % (Auto) 7.9 % (2.6-8.5) Eos % (Auto) 0.6 % (0-4.4) Baso % (Auto) 0.4 % (0.2-1.2) Lymph # (Auto) 2.05 K/mm3 (0.9-3.2) [place] # (Auto) 1.1 H K/mm3 (0.1-0.6) Eos # (Auto) 0.1 K/mm3 (0-0.3) Baso # (Auto) 0.1 K/mm3 (0.0-0.1) Abs Immat Gran (auto) 0.05 H K/mm3 (0.00-0.031) Absolute Neuts (auto) 10.6 H K/mm3 (1.3-6.7) Absolute Nucleated RBC 0.0 K/mm3 (0.0-0.012) Nucleated RBC % 0.0 % (0.0-0.2) POC Capillary Glucose 125 H mg/dl 120 H mg/dl (65-105) (65-105) Patient hx anesthesia problems: none Family hx anesthesia problems: none Results Review: All pre-operative results and documents have been reviewed as part of the pre-operative evaluation. [facility] Past Medical History Medical History BPH (benign prostatic hyperplasia) Closed subcapital fracture of neck of right femur May 2023 Diabetic peripheral neuropathy Essential hypertension Hyperlipidemia Peripheral artery disease Seizures Type 2 diabetes mellitus Surgical History Surgical History History of femoropopliteal bypass Bilateral approximately 2014 Family History Family History Father Age older than 80 years Mother Diabetes mellitus Social History Social History Social History: He lives with his significant other of 12 years. They have 2 dogs and 5 cats. He does not have any children. He is a recovering alcoholic and has not had alcohol in 25 years. He is also a recovering
[2023-06-18] MEDS: ceFAZolin 2 GM/D5W 50 ML 2 GM/50 ML BAG IVPB ×2 (13:52→20:26)
[2023-06-18] MEDS: ceFAZolin SODIUM 1 GM VIAL IV PUSH (15:40)
[2023-06-18] MEDS: fentaNYL CITRATE INJ (*CRX) 100 MCG/2 ML VIAL 25 MCG IV PUSH ×6 (16:35→17:00)
--- NOTE | 2023-06-18 16:41 | W.PM.PROC2 ---
Procedure Note - Detailed Date of Procedure 06/18/23 Pre-op Diagnosis Right subcapital Femoral Neck Fx Post-op Diagnosis Same Procedure Performed Right bipolar hip replacement Surgeon Christoph Mcleod MD Clinical Technologist Gwen Sesay/Gwen Geiger Anesthesia General Description of Procedure The patient was identified and proper site identified, then taken back to the operating room and transferred to the OR table. After general anesthetic induction and intubation, the patient was positioned in the left lateral decubitus position in the usual manner for a right hip procedure, and secured with padded hip positioner making sure the torso and extremities were properly padded. The right lower extremity was prepped and draped in the usual sterile fashion. A curvilinear incision was made over the greater trochanter and sharp dissection carried down through the subcutaneous tissue to the gluteus fascia and IT band which were divided in line with the incision. The anterior 1/2 of the abductors were sharply dissected off the greater trochanter developing the interval between the abductors and the capsule. The capsule was divided in an inverted-T fashion exposing the fracture site. A neck cut was made about one fingerbreadth above the level of the lesser trochanter. Head fragment was removed and the acetabulum cleared of debris. The acetabulum was sized to 51 mm. The proximal femur was prepared for the size 13 Press-Fit. Trial reduction was undertaken and the hip was noted to be stable through range of motion. The trial components removed. The real size 13 stem was seated. Through trialing it was noted that a 28, standard head with 51 cup configuration gave confucianist of leg lengths with excellent stability. The neck of the femoral component was cleaned and dried and the real components in those sizes were attached to the femoral stem. After final thorough lavage of the joint, the hip was again reduced. The capsule and concepción-incisional tissues were infiltrated with 60 cubic centimeters of 0.5% plain Marcaine. The capsule was repaired with #2 Ethibond suture. The abductors were repaired to the greater trochanter with #5 Ethibond suture passed through a bony bridge. The deep fascia was reapproximated with 0 looped PDS suture. Deeper layers of the subcu reapproximated with ?O? looped PDS as well. 2-0 strata fix and tissue adhesive were used for the skin, and a sterile dressing was applied. Procedure was well tolerated and there were no known intraoperative complications. Estimated Blood Loss -300.0 Urine Output -100.0 Drains No Packing No Pathology Yes (Femoral head and neck fragments) Complications No immediate complications Condition Stable Disposition PACU [facility] Billing Surgery - Charge Forward: Surgery Billing ([id number])
[2023-06-18 16:42] LABS: Glucose Point of Care 153 mg/dl (65-105)
[2023-06-18 16:54] LABS: Glucose Point of Care 104 mg/dl (65-105)
[2023-06-18 17:09] LABS: Glucose Point of Care 94 mg/dl (65-105)
[2023-06-18] MEDS: metFORMIN HCL XR 500 MG TAB.SR.24H PO (18:12)
[2023-06-18] MEDS: TAMSULOSIN HCL 0.4 MG CAPSULE PO (18:12)
[2023-06-18] MEDS: ATORVASTATIN 40 MG TABLET PO (18:13)
[2023-06-18] MEDS: FENOFIBRATE 160 MG TABLET PO (18:13)
[2023-06-18] MEDS: TOPIRAMATE 100 MG TABLET PO (18:13)
[2023-06-18] MEDS: HYDROcodone/acetaminophen (*CRX) 5-325 MG TABLET 2 TAB PO (18:23)
[2023-06-18] MEDS: SENNA/DOCUSATE SODIUM TABLET 2 TAB PO (18:23)
[2023-06-18] MEDS: SODIUM CHLORIDE 0.9% IV 1,000 ML 125 ML IV CONT (18:24)
[2023-06-18] MEDS: lamoTRIgine 100 MG TABLET 200 MG PO (20:26)
[2023-06-18] MEDS: ASPIRIN 81 MG ENTERIC TABLET PO (20:26)
[2023-06-18] MEDS: FAMOTIDINE 20 MG TABLET PO (20:26)
[2023-06-18 23:00] LABS: Glucose Point of Care 134 mg/dl (65-105)
[2023-06-19] VITALS (7 sets, daily range): BP systolic 111–137; BP diastolic 60–73; PULSE 85–94; RESP 16–18; TEMP 36.4–37.5; O2SAT 95–98
[2023-06-19] MEDS: HYDROcodone/acetaminophen (*CRX) 5-325 MG TABLET 2 TAB PO ×3 (03:44→21:13)
[2023-06-19 06:20] LABS: Basophils Percent Auto 0.3 % (0.2-1.2); Eosinophils Absolute Auto 0.1 K/mm3 (0-0.3); Eosinophils Percent Auto 0.7 % (0-4.4); Hematocrit 34.4 % (42.0-52.0); Hemoglobin 10.9 g/dL (14.0-18.0); Immature Granulocyte Absolute 0.08 K/mm3 (0.00-0.031); Immature Granulocyte Percent A 0.5 % (0-0.5); Lymphocytes Absolute Auto 1.86 K/mm3 (0.9-3.2); Lymphocytes Percent Auto 12.3 % (18.3-44.2); Mean Corpuscular HGB Conc 31.7 g/dl (32-36); Mean Corpuscular Volume 97.7 fl (80-100); Mean Platelet Volume 9.4 fl (7.4-10.4); Monocytes Absolute Auto 1.2 K/mm3 (0.1-0.6); Monocytes Percent Auto 8.2 % (2.6-8.5); Neutrophils Absolute Auto 11.8 K/mm3 (1.3-6.7); Platelet Count Result 222 k/mm3 (150-375); Red Blood Count 3.52 M/mm3 (4.6-6.20); Red Cell Distribution Width 13.5 % (11.5-14.5); White Blood Count 15.1 K/mm3 (4.5-10.0)
[2023-06-19] MEDS: ceFAZolin 2 GM/D5W 50 ML 2 GM/50 ML BAG IVPB ×2 (06:21→14:24)
[2023-06-19 06:35] LABS: Anion Gap 8 mmol/L (8-16); Blood Urea Nitrogen 7 mg/dL (9-20); Calcium 8.1 mg/dL (8.4-10.2); Carbon Dioxide 20 mmol/L (22-30); Chloride 110 mmol/L (98-107); Estimated CRCL calculation 106 ml/min; Estimated Glomerular Filt Rate > 60; Glucose 155 mg/dL (65-110); Potassium 3.7 mmol/L (3.4-5.0); Sodium 138 mmol/L (137-145)
[2023-06-19 07:59] LABS: Glucose Point of Care 156 mg/dl (65-105)
--- NOTE | 2023-06-19 08:27 | PCPTNOTE ---
Attempted PT evaluation, pt refused due to pain being 8/. RN aware. Will follow.
[2023-06-19] MEDS: CARBAMAZEPINE XR 200 MG TAB.ER.12H 400 MG PO ×2 (08:57→21:14)
[2023-06-19] MEDS: METOPROLOL SUCCINATE EXT REL 50 MG TABCR PO (08:58)
[2023-06-19] MEDS: FAMOTIDINE 20 MG TABLET PO ×2 (08:58→21:14)
[2023-06-19] MEDS: TOPIRAMATE 100 MG TABLET PO ×2 (08:58→17:04)
[2023-06-19] MEDS: CLOPIDOGREL BISULFATE 75 MG TABLET PO (08:58)
[2023-06-19] MEDS: SENNA/DOCUSATE SODIUM TABLET 2 TAB PO ×2 (08:58→17:04)
[2023-06-19] MEDS: lamoTRIgine 100 MG TABLET 300 MG PO (08:58)
[2023-06-19] MEDS: metFORMIN HCL XR 500 MG TAB.SR.24H PO ×2 (08:58→17:04)
[2023-06-19] MEDS: MORPHINE SULFATE (*CRX) 4 MG/ML INJ IV PUSH (08:59)
[2023-06-19] MEDS: polyethylene glycoL 3350 17 GM POWD.PACK PO (08:59)
[2023-06-19] MEDS: ATORVASTATIN 40 MG TABLET PO (09:32)
[2023-06-19] MEDS: FENOFIBRATE 160 MG TABLET PO (09:32)
[2023-06-19] MEDS: TAMSULOSIN HCL 0.4 MG CAPSULE PO (09:32)
--- NOTE | 2023-06-19 09:54 | PCPTNOTE ---
Attempted PT evaluation again. Pt refused stating he just took a bath and was in too much pain after to participate in therapy at this time. RN aware. Will follow.
--- NOTE | 2023-06-19 09:58 | PM.IMPN ---
Progress Note: A&P Assessment and Plan (1) Closed subcapital fracture of neck of right femur: Qualifiers: Encounter type: initial encounter Qualified Code(s): S72.011A - Unspecified intracapsular fracture of right femur, initial encounter for closed fracture Code(s): S72.011A - Unspecified intracapsular fracture of right femur, initial encounter for closed fracture Status: Acute Assessment and Plan: 06/17: Seen by orthopedics today plan for right bipolar hip replacement tomorrow. 06/18: Patient going to the OR this afternoon for bipolar hip replacement 06/19: Hip replacement completed yesterday, dressing Clean, Dry, Intact. PT/OT per ortho. Rehab likely upon DC. (2) Urinary retention due to benign prostatic hyperplasia: Code(s): N40.1 - Benign prostatic hyperplasia with lower urinary tract symptoms; R33.8 - Other retention of urine Status: Acute Assessment and Plan: 06/17: Postvoid residual 850 mL with palpable bladder distension. Nursing staff unable to pass Madison catheter x2, urology consulted. Appreciate assistance and catheter placement and management. 06/18: Catheter to remain in place until directed otherwise by Urology due to difficult placement requiring scope for placement by Urology. 06/19: Unchanged, blood tinged urine in collection bag. (3) Type 2 diabetes mellitus: Qualifiers: Diabetes mellitus fdc insulin use: without continuous churn buttermaker use Diabetes mellitus complication status: with neurologic complications Diabetes mellitus complication detail: with polyneuropathy Qualified Code(s): E11.42 - Type 2 diabetes mellitus with diabetic polyneuropathy Code(s): E11.9 - Type 2 diabetes mellitus without complications Status: Acute Assessment and Plan: 06/17: ACHS fingerstick glucose with insulin correction. 06/18; 06/19: Unchanged (4) Essential hypertension: Code(s): I10 - Essential (primary) hypertension Status: Acute Assessment and Plan: Resume home medications. Stable at this time. Blood pressure reviewed on 06/19 (5) Smoking: Code(s): F17.200 - Nicotine dependence, unspecified, uncomplicated Status: Acute Assessment and Plan: Nicotine patch ordered. (6) Hyperlipidemia: Code(s): E78.5 - Hyperlipidemia, unspecified Status: Acute Assessment and Plan: Continue home medications (7) History of seizures: Code(s): Z87.898 - Personal history of other specified conditions Status: Acute Assessment and Plan: Continue home medications no evidence of current or recent seizure activity. Avoid tramadol/tapentadol for pain due to potential to lower seizure threshold. Plan Madison per Urology, do not remove unless cleared by Urology. PT/OT Rehab planning per case management Time Spent With Patient Time with patient: 25 - 35 minutes Subjective Date/time seen: 06/19/23 09:58 Interval history: 06/17: Patient was admitted overnight transfer from [facility] [place] with fall with right subcapital femoral neck fracture. Patient to go to the operating room tomorrow for bipolar hip replacement. It was noted that patient has severe urinary retention with postvoid residual of 850 mL earlier today. Amdison catheter was ordered and nursing unable to pass after 2 attempts. Urology to be consulted reported as appreciate assistance. Patient denies any nausea vomiting constipation diarrhea chest pain shortness a breath fever or chills. He states he has right hip pain he tried to ambulate with walker at home for a little while before calling assistance. He states some mild lower abdominal discomfort but otherwise has no acute complaints. 06/18: Patient reports that he is feeling better after Madison catheter was placed by Urology yesterday. And had to be placed with scope. Renal ultrasound unremarkable. Patient denies any new or worsening symptoms. Only complains of right hip pa
[2023-06-19 12:07] LABS: Glucose Point of Care 137 mg/dl (65-105)
--- NOTE | 2023-06-19 13:05 | PM.PNORT ---
Progress Note: A&P Assessment and Plan (1) Closed subcapital fracture of neck of right femur: Qualifiers: Encounter type: initial encounter Qualified Code(s): S72.011A - Unspecified intracapsular fracture of right femur, initial encounter for closed fracture Code(s): S72.011A - Unspecified intracapsular fracture of right femur, initial encounter for closed fracture Status: Acute Plan 58-year-old male who is postop day one right hip bipolar replacement. Therapy will be initiated today. Did discuss with him once again smoking cessation. If he does well enough he will be able to go home but otherwise may need to go to rehab for a short period of time. Discussed this as well. He is back on his Plavix and aspirin. Time Spent With Patient Time with patient: 15 - 25 minutes Subjective Subjective Date/Time Seen: 06/19/23 13:05 Post Op day: 1 Principal diagnosis: Bipolar right hip replacement Interval history: This document created with [id number]-[id number] technology and is subject to manufacturing millwright irregularities. 58-year-old male postop day one right bipolar replacement for subcapital femoral neck fracture. Uneventful overnight. Does have pain in the right hip area which is expected. Review of Systems Constitutional: Constitutional: Denies anorexia Eyes: Eyes: Denies irritation and Denies loss of vision ENT: Reports Normal hearing present Cardiovascular: Cardiovascular: Denies chest pain and Denies dyspnea on exertion Respiratory: Respiratory: Denies cough and Denies dyspnea on exertion Gastrointestinal: Gastrointestinal: Denies abdominal pain and Denies bloating Genitourinary: Genitourinary: Denies dysuria Musculoskeletal: Musculoskeletal: Denies arthralgias Integumentary/Breasts: Skin/Breast: Denies skin ulcer Neurologic: Reports Normal hearing present and Denies loss of vision Hematologic/Lymphatic: Hematologic/Lymphatic: Denies easy bleeding Exam Const: General: cooperative, no acute distress and alert Nutritional Appearance: other Orientation/consciousness: patient oriented x3 Limitations: no limitations HENMT: Head: normal to inspection Chest: Chest palpation & inspection: normal inspection of the chest Resp: Effort & Inspection: normal respiratory effort and able to speak in complete sentences GI: Inspection: non-distended Neuro: General: patient oriented x3 Cognition (Neuro): normal cognition Speech: normal speech Extrem: General: normal to inspection Other: Exam of Left hip shows dry dressing. Minimal swelling and no bruising noted about the right hip. Grossly motor and sensory function intact right lower extremity but exam limited somewhat secondary to discomfort. Calves negative. Psych: Appearance: grossly normal Mental Status: mental status grossly normal Radiology Reports: Comments: EXAMINATION: XR hip RT min 2V DATE: 06/18/2023 16:57 INDICATION: Bipolar type right hip hemiarthroplasty TECHNIQUE: Anteroposterior and cross-table lateral views of the right hip were obtained. COMPARISON: 06/16/2023 FINDINGS: Interval resection of the fractured right femoral head and neck and placement of a noncemented bipolar type right hip hemiarthroplasty which appears well seated in near-anatomic alignment. No other fractures identified. Surgical clips at the right groin and proximal thigh which could be related to prior saphenous vein graft harvest. IMPRESSION: 1. Newly placed bipolar type right hip hemiarthroplasty in near-anatomic alignment, negative for postoperative purposes. Reviewed, dictated and finalized at location A. Objective Data Vital Signs Vital Signs: Vital Signs - 24 hr 06/18/23 16:18 06/18/23 16:30 06/18/23 16:45 Temperature 97.2 F L Pulse Rate 65 68 70 Respiratory Rate 15 14 12 Blood Pressure 107/
--- NOTE | 2023-06-19 13:11 | WPDANESPN ---
Anes - Prog Note Post-Op Date/Time: 06/19/23 13:11 Vital Signs: Last Vital Signs Temp 37.2 C 06/19/23 08:00 Pulse 86 06/19/23 08:00 Resp 18 06/19/23 08:00 BP 123/63 06/19/23 08:00 Pulse Ox 96 06/19/23 08:00 O2 Del Method Room Air 06/19/23 11:21 O2 Flow Rate 8 06/18/23 16:45 Pain Score (VAS): 8 I/O: Intake & Output 06/18/23 06/19/23 06/19/23 23:59 07:59 15:59 Intake Total 420 200 240 Output Total 150 1150 Balance 270 -950 240 Laboratory Tests 06/19/23 05:32 06/19/23 05:32 06/18/23 06/18/23 06/18/23 11:42 12:38 16:22 WBC RBC Hgb Hct MCV MCH MCHC RDW Plt Count MPV Immature Gran % (Auto) Neut % (Auto) Lymph % (Auto) Elliott % (Auto) Eos % (Auto) Baso % (Auto) Lymph # (Auto) Elliott # (Auto) Eos # (Auto) Baso # (Auto) Abs Immat Gran (auto) Absolute Neuts (auto) Absolute Nucleated RBC Nucleated RBC % Sodium Potassium Chloride Carbon Dioxide Anion Gap BUN Creatinine Estim Creat Clear Calc Estimated GFR Glucose POC Capillary Glucose 94 104 153 H Calcium 06/18/23 06/19/23 06/19/23 20:31 05:32 07:39 WBC 15.1 H RBC 3.52 L Hgb 10.9 L Hct 34.4 L MCV 97.7 MCH 31.0 MCHC 31.7 L RDW 13.5 Plt Count 222 MPV 9.4 Immature Gran % (Auto) 0.5 Neut % (Auto) 78.0 H Lymph % (Auto) 12.3 L Elliott % (Auto) 8.2 Eos % (Auto) 0.7 Baso % (Auto) 0.3 Lymph # (Auto) 1.86 Elliott # (Auto) 1.2 H Eos # (Auto) 0.1 Baso # (Auto) 0.0 Abs Immat Gran (auto) 0.08 H Absolute Neuts (auto) 11.8 H Absolute Nucleated RBC 0.0 Nucleated RBC % 0.0 Sodium 138 Potassium 3.7 Chloride 110 H Carbon Dioxide 20 L Anion Gap 8 BUN 7 L D Creatinine 0.70 Estim Creat Clear Calc 106 Estimated GFR > 60 Glucose 155 H POC Capillary Glucose 134 H 156 H Calcium 8.1 L 06/19/23 12:05 WBC RBC Hgb Hct MCV MCH MCHC RDW Plt Count MPV Immature Gran % (Auto) Neut % (Auto) Lymph % (Auto) Elliott % (Auto) Eos % (Auto) Baso % (Auto) Lymph # (Auto) Elliott # (Auto) Eos # (Auto) Baso # (Auto) Abs Immat Gran (auto) Absolute Neuts (auto) Absolute Nucleated RBC Nucleated RBC % Sodium Potassium Chloride Carbon Dioxide Anion Gap BUN Creatinine Estim Creat Clear Calc Estimated GFR Glucose POC Capillary Glucose 137 H Calcium Microbiology 06/17/23 10:49 Unspecified Urine Urine Culture - Final Coag negative Staphylococcus Patient Feedback: Patient satisfied with anesthetic care.
[2023-06-19 14:18] LABS: Glucose Point of Care 124 mg/dl (65-105)
[2023-06-19 16:52] LABS: Glucose Point of Care 154 mg/dl (65-105)
[2023-06-19] MEDS: lamoTRIgine 100 MG TABLET 200 MG PO (21:14)
[2023-06-19] MEDS: ASPIRIN 81 MG ENTERIC TABLET PO (21:14)
[2023-06-19] MEDS: SULFAMETHOXAZOLE/TRIMETHOPRIM 800/160 MG DS TABLET 1 TAB PO (21:14)
[2023-06-19 21:21] LABS: Glucose Point of Care 134 mg/dl (65-105)
[2023-06-20 06:00] VITALS: BP 123/73; PULSE 95; RESP 18; TEMP 36.2; O2SAT 95
[2023-06-20 07:49] LABS: Glucose Point of Care 189 mg/dl (65-105)
[2023-06-20] MEDS: polyethylene glycoL 3350 17 GM POWD.PACK PO (08:04)
[2023-06-20 08:05] VITALS: PULSE 96
[2023-06-20] MEDS: FENOFIBRATE 160 MG TABLET PO (08:05)
[2023-06-20] MEDS: CARBAMAZEPINE XR 200 MG TAB.ER.12H 400 MG PO (08:05)
[2023-06-20] MEDS: METOPROLOL SUCCINATE EXT REL 50 MG TABCR PO (08:05)
[2023-06-20] MEDS: lamoTRIgine 100 MG TABLET 300 MG PO (08:05)
[2023-06-20] MEDS: FAMOTIDINE 20 MG TABLET PO (08:05)
[2023-06-20] MEDS: ATORVASTATIN 40 MG TABLET PO (08:06)
[2023-06-20] MEDS: metFORMIN HCL XR 500 MG TAB.SR.24H PO (08:06)
[2023-06-20] MEDS: TAMSULOSIN HCL 0.4 MG CAPSULE PO (08:06)
[2023-06-20] MEDS: TOPIRAMATE 100 MG TABLET PO (08:06)
[2023-06-20] MEDS: SULFAMETHOXAZOLE/TRIMETHOPRIM 800/160 MG DS TABLET 1 TAB PO (08:06)
[2023-06-20] MEDS: CLOPIDOGREL BISULFATE 75 MG TABLET PO (08:06)
[2023-06-20] MEDS: SENNA/DOCUSATE SODIUM TABLET 2 TAB PO (08:06)
[2023-06-20] MEDS: HYDROcodone/acetaminophen (*CRX) 5-325 MG TABLET 2 TAB PO (08:09)
[2023-06-20 09:40] VITALS: O2SAT 95
--- NOTE | 2023-06-20 11:09 | PM.PNORT ---
Progress Note: A&P Assessment and Plan (1) Closed subcapital fracture of neck of right femur: Qualifiers: Encounter type: initial encounter Qualified Code(s): S72.011A - Unspecified intracapsular fracture of right femur, initial encounter for closed fracture Code(s): S72.011A - Unspecified intracapsular fracture of right femur, initial encounter for closed fracture Status: Acute Plan 58-year-old male who is postop day 2 right hip bipolar replacement. Continue to mobilize with therapy. He can be weight-bearing as tolerated with a walker. Plan to discharge to rehab facility today which should be fine. He will follow up for recheck in our office in 2 months with a new x-ray. The incision is glued so it is okay to remove the dressing in a couple of days and begin to shower. Subjective Subjective Date/Time Seen: 06/20/23 11:09 Post Op day: 2 Principal diagnosis: Bipolar right hip replacement Interval history: This document created with [id number] technology and is subject to semiconductor wafers tester irregularities. 58-year-old male postop day 2 right bipolar replacement for subcapital femoral neck fracture. Has been able to transfer from the bed to chair today. No drainage at the incision site. Overall doing well. Review of Systems Constitutional: Constitutional: Denies anorexia Eyes: Eyes: Denies irritation and Denies loss of vision ENT: Reports Normal hearing present Cardiovascular: Cardiovascular: Denies chest pain and Denies dyspnea on exertion Respiratory: Respiratory: Denies cough and Denies dyspnea on exertion Gastrointestinal: Gastrointestinal: Denies abdominal pain and Denies bloating Genitourinary: Genitourinary: Denies dysuria Musculoskeletal: Musculoskeletal: Denies arthralgias Integumentary/Breasts: Skin/Breast: Denies skin ulcer Neurologic: Reports Normal hearing present and Denies loss of vision Hematologic/Lymphatic: Hematologic/Lymphatic: Denies easy bleeding Exam Const: General: cooperative, no acute distress and alert Nutritional Appearance: other Orientation/consciousness: patient oriented x3 Limitations: no limitations HENMT: Head: normal to inspection Chest: Chest palpation & inspection: normal inspection of the chest Resp: Effort & Inspection: normal respiratory effort and able to speak in complete sentences GI: Inspection: non-distended Neuro: General: patient oriented x3 Cognition (Neuro): normal cognition Speech: normal speech Extrem: Other: Exam of the right hip shows a clean and dry dressing. Swelling and bruising to the right lower extremity consistent with recent surgical procedure. Neurovascular status right lower extremity is intact. Calf negative. Psych: Appearance: grossly normal Mental Status: mental status grossly normal Objective Data Vital Signs Vital Signs: Vital Signs - 24 hr 06/19/23 11:21 06/19/23 14:00 06/19/23 16:00 Temperature 99.3 F 99.3 F Pulse Rate 88 88 Respiratory Rate 18 18 Blood Pressure 129/73 129/73 Pulse Oximetry 98 98 Oxygen Delivery Room Air 06/19/23 21:44 06/19/23 20:00 06/20/23 06:00 Temperature 97.5 F L 97.1 F L Pulse Rate 94 94 95 Respiratory Rate 18 18 18 Blood Pressure 111/60 123/73 Pulse Oximetry 97 97 95 Oxygen Delivery Room Air 06/20/23 08:05 06/20/23 09:40 Temperature Pulse Rate 96 Respiratory Rate Blood Pressure Pulse Oximetry 95 Oxygen Delivery Room Air Intake/Output Intake/Output: Intake & Output 06/17/23 06/18/23 06/19/23 06/20/23 23:59 23:59 23:59 23:59 Intake Total 2840 470 1320 440 Output Total 2500 2600 2050 750 Balance 014 -2130 -730 -310 Meds/Results Medications: Active Medications Generic Name Dose Route Start Last Admin Trade Name Freq PRN Reason Stop Dose Admin Acetaminophen 650 mg 06/17/23 01:33 Acetaminophen 325 Mg Tablet PO Q4H PRN Mild Pain (1-3) or Fever Acetaminophen 650 mg 06/18/23 17:27
[2023-06-20 11:23] LABS: Glucose Point of Care 140 mg/dl (65-105)
--- NOTE | 2023-06-20 11:24 | PM.DS ---
DS: Admitting Diagnosis Discharge Date 06/20/2023 Admitting Diagnosis Femur fracture, right S72.91XA Urinary retention due to BPH Seizures Smoking Essential hypertension Type 2 diabetes mellitus DS: Discharge Diagnosis Discharge Diagnosis (1) Closed subcapital fracture of neck of right femur: Qualifiers: Encounter type: initial encounter Qualified Code(s): S72.011A - Unspecified intracapsular fracture of right femur, initial encounter for closed fracture Code(s): S72.011A - Unspecified intracapsular fracture of right femur, initial encounter for closed fracture Status: Acute (2) Urinary retention due to benign prostatic hyperplasia: Code(s): N40.1 - Benign prostatic hyperplasia with lower urinary tract symptoms; R33.8 - Other retention of urine Status: Acute (3) UTI (urinary tract infection): Code(s): N39.0 - Urinary tract infection, site not specified Status: Acute (4) History of seizures: Code(s): Z87.898 - Personal history of other specified conditions Status: Acute (5) Type 2 diabetes mellitus: Qualifiers: Diabetes mellitus longwall foreman insulin use: without longwall foreman use Diabetes mellitus complication status: with neurologic complications Diabetes mellitus complication detail: with polyneuropathy Qualified Code(s): E11.42 - Type 2 diabetes mellitus with diabetic polyneuropathy Code(s): E11.9 - Type 2 diabetes mellitus without complications Status: Acute (6) Hyperlipidemia: Code(s): E78.5 - Hyperlipidemia, unspecified Status: Acute (7) Essential hypertension: Code(s): I10 - Essential (primary) hypertension Status: Acute (8) Smoking: Code(s): F17.200 - Nicotine dependence, unspecified, uncomplicated Status: Acute DS: Summary Hospital Course Reason for hospitalization: This is a 58-year-old male patient past history of seizures who was admitted as a direct admit from [facility] after mechanical fall causing a right femoral neck fracture. Patient on aspirin and Plavix at home. Hospital Course: Patient was admitted with elevated white blood cell count and severe urinary retention related to BPH. Madison catheter placement was unsuccessful after multiple attempts. Urology consulted and they were unsuccessful without the use of the scope. Madison catheter inserted by urologist with use of scope. Orthopedics consulted and patient arranged for right bipolar hip replacement. Due to history of seizures patient unable to receive tramadol or tapentadol. UA was suggestive of urinary tract infection and ultimately there was growth of coag-negative staph coccus. Patient was placed on Bactrim which will be continued upon discharge for a total treatment length of 7-10 days. Patient worked with physical therapy having increased pain and only able to ambulate a few steps. He was evaluated by [facility] and was accepted. Orthopedics evaluated patient today and felt he was good to be discharged to rehab. Status at Discharge Cognitive/behavioral status at discharge: Awake, alert, oriented and pleasant Functional status at discharge: uses cane/walker (Only able to ambulate a few steps) Overall status at discharge: patient is progressing back to baseline Time Spent with Patient Time attestation: Total time spent providing and/or coordinating discharge services: Time spent: Greater than 30 minutes Exam Narrative: GENERAL: Generally well appearing, alert and oriented, in no apparent distress. Patient responds to questions in 1-2 word answers but seems in better mood today. HEENT: Pupils are equally round and briskly reactive to light. Extraocular muscles are intact. Oral mucous membranes are moist without lesions. NECK: The patient has no noted JVD. No adenopathy is appreciated. CHEST/LUNGS: Lungs are clear bilaterally without rhonchi, rales, or wheezes. There is no subcutaneous air ap
== END 2023-06-20 13:35 | DRG 522 ==
PROVIDERS: Orthopaedic Surgery; Admitting Provider Internal Medicine; PCP Internal Medicine; Visit Provider Nurse Practitioner
PROC: 0SRR01A Replacement of Right Hip Joint, Femoral Surface with Metal Synthetic Substitute, Uncemented, Open Approach (ICD-10-PCS; CPT 27125; principal; 2023-06-18 13:00)
DX: S72.011A Unspecified intracapsular fracture of right femur, initial encounter for closed fracture (principal); N39.0 Urinary tract infection, site not specified; E78.5 Hyperlipidemia, unspecified; B95.7 Other staphylococcus as the cause of diseases classified elsewhere; W18.09XA Striking against other object with subsequent fall, initial encounter; E11.51 Type 2 diabetes mellitus with diabetic peripheral angiopathy without gangrene; E11.42 Type 2 diabetes mellitus with diabetic polyneuropathy; F17.210 Nicotine dependence, cigarettes, uncomplicated; G40.909 Epilepsy, unspecified, not intractable, without status epilepticus; I10 Essential (primary) hypertension; N40.1 Benign prostatic hyperplasia with lower urinary tract symptoms; R33.8 Other retention of urine; Z79.84 Long term (current) use of oral hypoglycemic drugs; Z95.820 Peripheral vascular angioplasty status with implants and grafts; Z79.82 Long term (current) use of aspirin; Z79.02 Long term (current) use of antithrombotics/antiplatelets
CPT/HCPCS: 36415; 71045; 73502; 76775; 80048; 81001; 82948; 85025; 87077; 87086; 87088; 88307; 88311; 97110; 97161; 97165; 97530; 97535; A9270; C1713; C1769; C1776; J0171; J0690; J0696; J1100; J1170; J2250; J2270; J2405; J2704; J2795; J3010; J7030; J7120

== ENCOUNTER 2023-06-28 16:00 | Inpatient (IN) | payer MEDICARE, MEDICAID, SELFPAY ==
[2023-06-28 15:57] VITALS: BP 130/90; PULSE 65; RESP 14; TEMP 36.7; O2SAT 96
--- NOTE | 2023-06-28 16:33 | ED.GENADULT ---
HPI - General Adult General Chief complaint: Wound/Laceration <J Carlos Roth PA-C - Last Filed: 06/28/23 19:45> Stated complaint: WOUND CHECK <J Carlos Roth PA-C - Last Filed: 06/28/23 19:45> Time Seen by Provider: 06/28/23 16:04 <J Carlos Roth PA-C - Last Filed: 06/28/23 19:45> Source: patient <J Carlos Roth PA-C - Last Filed: 06/28/23 19:45> Mode of arrival: ambulatory <CIRA Lema Last Filed: 06/28/23 19:45> Limitations: no limitations <J Carlos Roth PA-C - Last Filed: 06/28/23 19:45> History of Present Illness HPI narrative: This is a 58-year-old male who is status post right hip arthroplasty on June 18, [address] Mcleod and having some oozing from the wound site. Patient reports it has been oozing a little bit of blood today. [facility]. Patient states that he has had very little problems with the hip since surgery. He has been doing rehab as expected. Denies any difficulties with ambulation. He reports his pain medications help to control the pain. Denies fevers, chills, nausea, vomiting. <J Carlos Roth PA-C - Last Filed: 06/28/23 19:45> Related Data Home medications: Home Medications Medication Instructions Recorded Confirmed aspirin 81 mg tablet,delayed 81 mg PO HS 03/01/21 06/28/23 release atorvastatin 40 mg tablet 40 mg PO DAILY 03/01/21 06/28/23 clopidogrel 75 mg tablet 75 mg PO DAILY 03/01/21 06/28/23 metformin 500 mg tablet,extended 500 mg PO BID 03/01/21 06/28/23 release 24 hr metoprolol succinate 50 mg 50 mg PO DAILY 03/01/21 06/28/23 tablet,extended release 24 hr carbamazepine 400 mg 400 mg PO BID 06/16/23 06/28/23 tablet,extended release,12 hr lamotrigine 200 mg tablet 300 mg PO DAILY 06/16/23 06/28/23 lamotrigine 200 mg tablet 200 mg PO HS 06/17/23 06/28/23 topiramate 100 mg tablet 100 mg PO BID 06/17/23 06/28/23 acetaminophen 325 mg tablet (Mapap 650 mg PO Q6H Mild Pain (1-3) Or 06/28/23 06/28/23 (acetaminophen)) Fever cyclobenzaprine 5 mg tablet 5 mg PO TID 06/28/23 06/28/23 gemfibrozil 600 mg tablet 600 mg PO BID 06/28/23 06/28/23 hydrocodone 5 mg-acetaminophen 325 1 tablet PO Q3H PRN Pain Rated 4-6 06/28/23 06/28/23 mg tablet hydrocodone 5 mg-acetaminophen 325 2 tablet PO Q6H PRN Pain (Scale 06/28/23 06/28/23 mg tablet Score 7-10) lorazepam 2 mg/mL injection syringe 0.5 mg IM TID PRN Seizure Activity 06/28/23 06/28/23 pantoprazole 40 mg tablet,delayed 40 mg PO DAILY 06/28/23 06/28/23 release (Protonix) polyethylene glycol 3350 17 gram 17 g PO QAM PRN Constipation 06/28/23 06/28/23 oral powder packet (Miralax) sennosides 8.6 mg-docusate sodium 2 tab PO BID PRN Constipation 06/28/23 06/28/23 50 mg tablet (Senokot-S) tramadol 50 mg tablet 50 mg PO Q8H PRN Pain (Scale Score 06/28/23 06/28/23 4-6) <J Carlos Roth PA-C - Last Filed: 06/28/23 19:45> Allergies/adverse reactions: Allergies Allergy/AdvReac Type Severity Reaction Status Date / Time tramadol AdvReac Unknown Seizure Verified 06/28/23 22:09 pine Allergy unknown Uncoded 06/28/23 22:09 <J Carlos Roth PA-C - Last Filed: 06/28/23 19:45> Review of Systems Review of Systems: All systems as dictated in HPI <J Carlos Roth PA-C - Last Filed: 06/28/23 19:45> PMFSH Past Medical History Medical History: Medical History BPH (benign prostatic hyperplasia) Diabetic peripheral neuropathy Essential hypertension Hyperlipidemia Peripheral artery disease Seizures Type 2 diabetes mellitus <J Carlos Roth PA-C - Last Filed: 06/28/23 19:45> Surgical History Surgical History: Surgical History Closed subcapital fracture of neck of right femur Bipolar replacement June 18, 2023 History of femoropopliteal bypass Bilateral approximately 2014 <J Carlos Roth PA-C - Last Filed: 06/28/23 19:45> Family H
--- NOTE | 2023-06-28 18:38 | PC.NURSE ---
patient refusing to wear monitor at this time.
[2023-06-28 18:45] LABS: Basophils Absolute Auto 0.1 K/mm3 (0.0-0.1); Basophils Percent Auto 0.7 % (0.2-1.2); Eosinophils Absolute Auto 0.2 K/mm3 (0-0.3); Eosinophils Percent Auto 1.6 % (0-4.4); Hematocrit 35.2 % (42.0-52.0); Hemoglobin 10.9 g/dL (14.0-18.0); Immature Granulocyte Absolute 0.33 K/mm3 (0.00-0.031); Immature Granulocyte Percent A 2.2 % (0-0.5); Lymphocytes Absolute Auto 3.18 K/mm3 (0.9-3.2); Lymphocytes Percent Auto 21.3 % (18.3-44.2); Mean Corpuscular Hemoglobin 30.7 pg (26-34); Mean Corpuscular Volume 99.2 fl (80-100); Mean Platelet Volume 8.5 fl (7.4-10.4); Monocytes Absolute Auto 1.1 K/mm3 (0.1-0.6); Neutrophils Percent Auto 67.2 % (45.5-73.1); Platelet Count Result 825 k/mm3 (150-375); Red Blood Count 3.55 M/mm3 (4.6-6.20); Red Cell Distribution Width 13.9 % (11.5-14.5); White Blood Count 14.9 K/mm3 (4.5-10.0)
[2023-06-28 18:53] LABS: Partial Thromboplastin Time 38.3 SECONDS (22.3-36.8); Prothrombin Time 13.7 Seconds (11.1-14.7)
[2023-06-28 18:56] LABS: Alanine Aminotransferase 18 U/L (6-50); Alkaline Phosphatase 91 U/L (38-126); Anion Gap 11 mmol/L (8-16); Aspartate Amino Transferase 40 U/L (17-59); Bilirubin,Total 0.6 mg/dL (0.2-1.3); Blood Urea Nitrogen 16 mg/dL (9-20); Calcium 9.4 mg/dL (8.4-10.2); Carbon Dioxide 21 mmol/L (22-30); Chloride 103 mmol/L (98-107); Estimated CRCL calculation 70 ml/min; Estimated Glomerular Filt Rate > 60; Glucose 108 mg/dL (65-110); Potassium 4.6 mmol/L (3.4-5.0); Sodium 135 mmol/L (137-145)
[2023-06-28] MEDS: SODIUM CHLORIDE 0.9% IV 1,000 ML 125 ML IV CONT (19:12)
[2023-06-28 19:16] VITALS: BP 112/91; RESP 19; O2SAT 100
[2023-06-28 20:12] VITALS: BP 116/89; PULSE 89; RESP 17; O2SAT 99
--- NOTE | 2023-06-28 20:28 | PC.NURSE ---
being admitted with IV fluids infusing per order
--- NOTE | 2023-06-28 21:27 | PM.IMHP ---
H&P: HPI History of Present Illness Date/Time: 06/28/23 21:27 Chief Complaint: right hip dehiscience Narrative: Patient is a 58-year-old male with past medical history type 2 diabetes with neuropathy, PAD, hyperlipidemia, essential hypertension, BPH who presents to the ED with wound dehiscence after right hip arthroplasty after closed subcapital fracture of right femur neck. Patient recently was admitted on 06/17/2023 with closed subcapital fracture of right femur neck Garden type 4. He underwent right bipolar hip replacement by Dr. Mcleod 06/18. He subsequently went to [facility] on 06/21. Over last several days along his incision site he has been having increased serous drainage along the distal aspect of the incision site. With concern of wound dehiscence patient was brought to the ED for further evaluation. In the ED patient has minor wound at the distal end of the incision site. He has a simple gauze dressing over the wound. Orthopedics consulted with recommendation for observation for wound dehiscence. Dr. Mcleod to see in the morning. Will keep NPO midnight. Review of Systems Review of Systems: Constitutional: No Fever, No Chills, No Night Sweats, No Fatigue, No Malaise ENT/Mouth: No Hearing Changes, No Ear Pain, No Nasal Congestion, No Sinus Pain, No Hoarseness, No sore throat, No Rhinorrhea, No Swallowing Difficulty Eyes: No Eye Pain, No Redness, No Vision Changes Cardiovascular: No Chest Pain, No Palpitations, No Dyspnea on Exertion, No Orthopnea, No Claudication, No Edema Respiratory: No Cough, No Sputum, No Wheezing, No Shortness of Breath Gastrointestinal: No Nausea, No Vomiting, No Diarrhea, No Constipation, No Abdominal Pain, No Heartburn, No Hematochezia, No Melena Genitourinary: No Dysuria, No Urinary Frequency, No Hematuria, No Urinary Incontinence, No Urgency Musculoskeletal: Increased drainage from incision site Skin: No Skin Lesions, No Pruritis, No Hair Changes Neuro: No Weakness, No Numbness, No Paresthesias, No Loss of Consciousness, No Syncope, No Dizziness, No Headache Psych: No Anxiety/Panic, No Depression, No Insomnia Heme: No Bruising, No Bleeding Lymph: No Adenopathy Endocrine: No Polyuria, No Polydipsia, No Temperature Intolerance [facility] Past Medical History Medical History BPH (benign prostatic hyperplasia) Diabetic peripheral neuropathy Essential hypertension Hyperlipidemia Peripheral artery disease Seizures Type 2 diabetes mellitus Surgical History Surgical History Closed subcapital fracture of neck of right femur Bipolar replacement June 18, 2023 History of femoropopliteal bypass Bilateral approximately 2014 Family History Family History Father Age older than 80 years Mother Diabetes mellitus Social History Social History Social History: He lives with his significant other of 12 years. They have 2 dogs and 5 cats. He does not have any children. 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 He still smokes 1 pack of cigarettes per day and has done so since he was 15 years old. Code status: Full code Surrogate decision maker: Georgina Chicojefferykendell (significant other) Smoking packs per day: 1 Smoking cigarettes per day: 20.0 Years smoked: 43 Smoking pack-years: 43.00 Smoking status: Current every day smoker Tobacco type: cigarettes Alcohol intake: former Alcohol use details: He was an alcoholic but quit drinking 1997 Substance use: former Substance use type: marijuana and crack/cocaine Last use: 25 years ago and stopped Lack of Transportation: No Lack of Food: Never True Current
[2023-06-28 21:38] VITALS: BP 137/70; PULSE 74; RESP 16; TEMP 36.4; O2SAT 100
[2023-06-28 22:53] LABS: Glucose Point of Care 145 mg/dl (65-105)
[2023-06-28] MEDS: HYDROcodone/acetaminophen (*CRX) 5-325 MG TABLET 2 TAB PO (23:13)
[2023-06-28] MEDS: lamoTRIgine 100 MG TABLET 200 MG PO (23:13)
[2023-06-28] MEDS: CARBAMAZEPINE XR 200 MG TAB.ER.12H 400 MG PO (23:25)
--- NOTE | 2023-06-28 23:45 | ADMGEN ---
This patient, Wally Powell, was admitted to [facility] Surg Room 314-01. Patient/family oriented to hospital policies and general routines including ID bracelet, bed and alarms, visiting hours, pain management, procedures, bathroom and other care routines, personal items, smoking policy, room service/diet, and visiting hours. Information on how to activate the Rapid Response Team has been discussed. Patient/Family are encouraged to report perceived risks to care and to ask questions if they do not understand what they are told or what they should do.
[2023-06-29] VITALS (13 sets, daily range): BP systolic 112–136; BP diastolic 63–83; PULSE 58–97; RESP 12–18; TEMP 35.8–37; O2SAT 94–100
[2023-06-29] MEDS: ACETAMINOPHEN 325 MG TABLET 650 MG PO ×2 (06:03→17:49)
[2023-06-29 06:46] LABS: Basophils Absolute Auto 0.1 K/mm3 (0.0-0.1); Basophils Percent Auto 0.8 % (0.2-1.2); Eosinophils Absolute Auto 0.3 K/mm3 (0-0.3); Eosinophils Percent Auto 2.1 % (0-4.4); Hemoglobin 9.6 g/dL (14.0-18.0); Immature Granulocyte Absolute 0.25 K/mm3 (0.00-0.031); Immature Granulocyte Percent A 2.1 % (0-0.5); Lymphocytes Percent Auto 22.3 % (18.3-44.2); Mean Corpuscular Hemoglobin 30.4 pg (26-34); Mean Corpuscular Volume 98.1 fl (80-100); Mean Platelet Volume 8.5 fl (7.4-10.4); Monocytes Percent Auto 8.6 % (2.6-8.5); Neutrophils Absolute Auto 7.8 K/mm3 (1.3-6.7); Neutrophils Percent Auto 64.1 % (45.5-73.1); Platelet Count Result 753 k/mm3 (150-375); Red Blood Count 3.16 M/mm3 (4.6-6.20); Red Cell Distribution Width 13.7 % (11.5-14.5); White Blood Count 12.1 K/mm3 (4.5-10.0)
[2023-06-29 06:54] LABS: Hemoglobin A1C 6.1 % (<5.7)
[2023-06-29 06:59] LABS: Anion Gap 8 mmol/L (8-16); Blood Urea Nitrogen 13 mg/dL (9-20); Calcium 9.1 mg/dL (8.4-10.2); Carbon Dioxide 20 mmol/L (22-30); Chloride 107 mmol/L (98-107); Estimated CRCL calculation 94 ml/min; Estimated Glomerular Filt Rate > 60; Glucose 138 mg/dL (65-110); Magnesium 1.9 mg/dL (1.6-2.3); Potassium 4.4 mmol/L (3.4-5.0); Sodium 135 mmol/L (137-145)
[2023-06-29 07:14] LABS: Procalcitonin 0.1 ng/mL
[2023-06-29 08:05] LABS: Glucose Point of Care 137 mg/dl (65-105)
--- NOTE | 2023-06-29 08:20 | PCOTNOTE ---
Pt. currently has Bed Rest orders. Can be seen be seen by therapy when activity is approved by hospitalist.
[2023-06-29 08:29] LABS: Erythrocyte Sedimentation Rate > 140 mm/hr (0-20)
[2023-06-29] MEDS: gemfibroziL 600 MG TABLET PO ×2 (09:36→17:49)
[2023-06-29] MEDS: CYCLOBENZAPRINE HCL 5 MG TABLET PO ×2 (09:36→17:49)
[2023-06-29] MEDS: ATORVASTATIN 40 MG TABLET PO (09:36)
[2023-06-29] MEDS: CARBAMAZEPINE XR 200 MG TAB.ER.12H 400 MG PO ×2 (09:36→20:49)
[2023-06-29] MEDS: TOPIRAMATE 100 MG TABLET PO ×2 (09:36→17:48)
[2023-06-29] MEDS: TAMSULOSIN HCL 0.4 MG CAPSULE PO (09:36)
[2023-06-29] MEDS: lamoTRIgine 100 MG TABLET 300 MG PO (09:36)
[2023-06-29] MEDS: CLOPIDOGREL BISULFATE 75 MG TABLET PO (09:37)
[2023-06-29] MEDS: METOPROLOL SUCCINATE EXT REL 50 MG TABCR PO (09:37)
[2023-06-29] MEDS: FAMOTIDINE 20 MG TABLET PO ×2 (09:37→20:49)
[2023-06-29] MEDS: metFORMIN HCL XR 500 MG TAB.SR.24H PO ×2 (09:37→17:49)
[2023-06-29] MEDS: PANTOPRAZOLE 40 MG TABLET PO (09:37)
[2023-06-29] MEDS: HYDROcodone/acetaminophen (*CRX) 5-325 MG TABLET 2 TAB PO ×2 (09:45→20:50)
[2023-06-29 12:22] LABS: Glucose Point of Care 129 mg/dl (65-105)
--- NOTE | 2023-06-29 13:10 | PM.CNOR ---
Assessment and Plan Assessment and plan (1) Wound dehiscence, surgical: Qualifiers: Encounter type: initial encounter Qualified Code(s): T81.31XA - Disruption of external operation (surgical) wound, not elsewhere classified, initial encounter Code(s): T81.31XA - Disruption of external operation (surgical) wound, not elsewhere classified, initial encounter Status: Acute (2) Closed subcapital fracture of neck of right femur: Qualifiers: Encounter type: initial encounter Qualified Code(s): S72.011A - Unspecified intracapsular fracture of right femur, initial encounter for closed fracture Code(s): S72.011A - Unspecified intracapsular fracture of right femur, initial encounter for closed fracture Status: Acute Plan 58-year-old male who is a week and half out from right hip bipolar replacement. He has had separation of the distal portion of his wound resulting in some superficial bleeding. Best course of action at this point is revision of the incision. I discussed this with him. Plan on proceeding today. Risks and potential complications were discussed in detail and questions answered. Would anticipate him being able to return to the rehab facility and a 2-3 days. History of Present Illness HPI Consult date: 06/29/23 Chief complaint: Right Hip Surgical Wound Dehiscence Narrative: 58-year-old male with about a week and half out from right bipolar replacement. I got a phone call yesterday he has some drainage coming the distal portion of his incision. He came to the emergency room was admitted for further evaluation and management of this problem. Overall he says he is feeling good. He is making progress in therapy and having virtually no pain in his hip area. Review of Systems Constitutional: Constitutional: Denies anorexia Eyes: Eyes: Denies irritation and Denies loss of vision ENT: Reports Normal hearing present Cardiovascular: Cardiovascular: Denies chest pain and Denies dyspnea on exertion Respiratory: Respiratory: Denies cough and Denies dyspnea on exertion Gastrointestinal: Gastrointestinal: Denies abdominal pain and Denies bloating Genitourinary: Genitourinary: Denies dysuria Musculoskeletal: Musculoskeletal: Denies arthralgias Integumentary/Breasts: Skin/Breast: Denies skin ulcer Neurologic: Reports Normal hearing present and Denies loss of vision Hematologic/Lymphatic: Hematologic/Lymphatic: Denies easy bleeding PMFSH Past Medical History Medical History BPH (benign prostatic hyperplasia) Diabetic peripheral neuropathy Essential hypertension Hyperlipidemia Peripheral artery disease Seizures Type 2 diabetes mellitus Surgical History Surgical History Closed subcapital fracture of neck of right femur Bipolar replacement June 18, 2023 History of femoropopliteal bypass Bilateral approximately 2014 Family History Family History Father Age older than 80 years Mother Diabetes mellitus Social History Social History Social History: He lives with his significant other of 12 years. They have 2 dogs and 5 cats. He does not have any children. 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 He still smokes 1 pack of cigarettes per day and has done so since he was 15 years old. Code status: Full code Surrogate decision maker: Georgina Duff (significant other) Smoking packs per day: 1 Smoking cigarettes per day: 20.0 Years smoked: 43 Smoking pack-years: 43.00 Smoking status: Heavy tobacco smoker Tobacco type: cigarettes Second hand tobacco smoke exposure: Yes Alcohol intake: never Alcohol use de
--- NOTE | 2023-06-29 13:40 | PM.IMPN ---
Progress Note: A&P Assessment and Plan (1) Wound dehiscence, surgical: Qualifiers: Encounter type: initial encounter Qualified Code(s): T81.31XA - Disruption of external operation (surgical) wound, not elsewhere classified, initial encounter Code(s): T81.31XA - Disruption of external operation (surgical) wound, not elsewhere classified, initial encounter Status: Acute Assessment and Plan: Patient to go for incision revision per orthopedic surgery (2) Closed subcapital fracture of neck of right femur: Qualifiers: Encounter type: initial encounter Qualified Code(s): S72.011A - Unspecified intracapsular fracture of right femur, initial encounter for closed fracture Code(s): S72.011A - Unspecified intracapsular fracture of right femur, initial encounter for closed fracture Status: Acute Assessment and Plan: Status post bipolar hip replacement on 06/18, receiving therapy services at [facility] (3) Type 2 diabetes mellitus: Qualifiers: Diabetes mellitus fci insulin use: without intermediate school teacher use Diabetes mellitus complication status: with neurologic complications Diabetes mellitus complication detail: with polyneuropathy Qualified Code(s): E11.42 - Type 2 diabetes mellitus with diabetic polyneuropathy Code(s): E11.9 - Type 2 diabetes mellitus without complications Status: Acute Assessment and Plan: ACHS fingerstick glucose with sliding scale insulin (4) History of seizures: Code(s): Z87.898 - Personal history of other specified conditions Status: Acute Assessment and Plan: Unknown date of last seizure, tramadol discontinued due to history of seizures (5) Essential hypertension: Code(s): I10 - Essential (primary) hypertension Status: Acute Assessment and Plan: Stable. Blood pressure reviewed 06/29 Plan Incision revision per orthopedics Time Spent With Patient Time with patient: 25 - 35 minutes Subjective Date/time seen: 06/29/23 13:40 Interval history: Patient had right bipolar hip replacement a week and half ago and while at rehab wound dehiscence was noted. Patient was transported to the emergency department and decision was made to admit for orthopedics re-evaluation. Orthopedics has seen the patient and decided to proceed with incision revision today. They anticipate discharge in 2-[address] [facility]. Patient wants to be back at rehab as soon as possible. Patient denies fever chills. States his pain is controlled. Review of Systems Review of Systems: All systems reviewed & are unremarkable except as noted in HPI and below Exam Narrative: - GENERAL: Pleasant male in no acute distress. Well-nourished. - EYES: EOMI. Anicteric. - HENT: Moist mucous membranes. - LUNGS: Clear to auscultation bilaterally, no wheezing, rhonchi, or rales. - CARDIOVASCULAR: Regular rate and rhythm. No murmur. No JVD. - ABDOMEN: Soft, non-tender and non-distended. No palpable masses. - EXTREMITIES: No peripheral edema, peripheral pulses intact 2+, nontender. Right hip incision mostly well approximated, healing nicely. Patient has a 1 cm area of partial dehiscence with drainage serosanguineous without purulence at the distal end of the incision site. The wound is slightly indurated, appropriate bruising expected from surgery - NEUROLOGIC: No focal neurological deficits. CN II-XII grossly intact. - PSYCHIATRIC: Awake, Alert and oriented x 3. Appropriate mood and affect. - SKIN: No rashes or lesions. Warm. - LYMPH: No cervical lymphadenopathy. Objective Data Vital Signs Vital Signs: Vital Signs - 24 hr 06/28/23 15:57 06/28/23 19:16 06/28/23 20:12 Temperature 36.7 C Pulse Rate 65 89 Respiratory Rate 14 19 17 Blood Pressure 130/90 112/91 H 116/89 Pulse Oximetry 96 100 99 Oxygen Delivery Room Air 06/28/23 21:38 06/29/23 06:00 06/29/23 09:37 Temperature 36.4 C 36.3 C L P
--- NOTE | 2023-06-29 13:45 | WPDANESEPPF ---
Anes - Initial Pre Proc Eval Procedure: Operation Date: 06/29/23 15:00 Proposed Procedures p Washout And Closure Right Hip - Christoph Mcleod MD Date/Time: 06/29/23 13:45 Surgeon: Nolan Moore DO Pre Op Diagnosis: Right Hip Surgical Wound Dehiscence Patient Data Age: 58 Gender: M Height: 1.83 m Weight: 95.4 kg Last Vital Signs Temp 36.3 C L 06/29/23 06:00 Pulse 72 06/29/23 09:37 Resp 18 06/29/23 06:00 BP 121/67 06/29/23 06:00 Pulse Ox 97 06/29/23 06:00 O2 Del Method Room Air 06/28/23 15:57 Allergies Allergy/AdvReac Type Severity Reaction Status Date / Time tramadol AdvReac Unknown Seizure Verified 06/28/23 22:09 pine Allergy unknown Uncoded 06/28/23 22:09 Home Medications Medication Instructions Recorded Confirmed Type aspirin 81 mg tablet,delayed 81 mg PO HS 03/01/21 06/28/23 History release atorvastatin 40 mg tablet 40 mg PO DAILY 03/01/21 06/28/23 History clopidogrel 75 mg tablet 75 mg PO DAILY 03/01/21 06/28/23 History metformin 500 mg tablet,extended 500 mg PO BID 03/01/21 06/28/23 History release 24 hr metoprolol succinate 50 mg 50 mg PO DAILY 03/01/21 06/28/23 History tablet,extended release 24 hr carbamazepine 400 mg 400 mg PO BID 06/16/23 06/28/23 History tablet,extended release,12 hr lamotrigine 200 mg tablet 300 mg PO DAILY 06/16/23 06/28/23 History lamotrigine 200 mg tablet 200 mg PO HS 06/17/23 06/28/23 History topiramate 100 mg tablet 100 mg PO BID 06/17/23 06/28/23 History famotidine 20 mg tablet 20 mg PO Q12HR #0 tabs 06/20/23 06/28/23 Rx sulfamethoxazole 800 1 tab PO Q12HR #0 tabs 06/20/23 06/28/23 Rx mg-trimethoprim 160 mg tablet tamsulosin 0.4 mg capsule 0.4 mg PO QAM #0 caps 06/20/23 06/28/23 Rx acetaminophen 325 mg tablet (Mapap 650 mg PO Q6H Mild Pain (1-3) Or 06/28/23 06/28/23 History (acetaminophen)) Fever cyclobenzaprine 5 mg tablet 5 mg PO TID 06/28/23 06/28/23 History gemfibrozil 600 mg tablet 600 mg PO BID 06/28/23 06/28/23 History hydrocodone 5 mg-acetaminophen 325 1 tablet PO Q3H PRN Pain Rated 4-6 06/28/23 06/28/23 History mg tablet hydrocodone 5 mg-acetaminophen 325 2 tablet PO Q6H PRN Pain (Scale 06/28/23 06/28/23 History mg tablet Score 7-10) lorazepam 2 mg/mL injection syringe 0.5 mg IM TID PRN Seizure Activity 06/28/23 06/28/23 History pantoprazole 40 mg tablet,delayed 40 mg PO DAILY 06/28/23 06/28/23 History release (Protonix) polyethylene glycol 3350 17 gram 17 g PO QAM PRN Constipation 06/28/23 06/28/23 History oral powder packet (Miralax) sennosides 8.6 mg-docusate sodium 2 tab PO BID PRN Constipation 06/28/23 06/28/23 History 50 mg tablet (Senokot-S) tramadol 50 mg tablet 50 mg PO Q8H PRN Pain (Scale Score 06/28/23 06/28/23 History 4-6) Laboratory Tests 06/28/23 06/28/23 06/29/23 17:49 22:49 05:52 WBC 14.9 H K/mm3 12.1 H K/mm3 (4.5-10.0) (4.5-10.0) RBC 3.55 L M/mm3 3.16 L M/mm3 (4.6-6.20) (4.6-6.20) Hgb 10.9 L g/dL 9.6 L g/dL (14.0-18.0) (14.0-18.0) Hct 35.2 L % 31.0 L % (42.0-52.0) (42.0-52.0) MCV 99.2 fl 98.1 fl (80-100) (80-100) MCH 30.7 pg 30.4 pg (26-34) (26-34) MCHC 31.0 L g/dl 31.0 L g/dl (32-36) (32-36) RDW 13.9 % 13.7 % (11.5-14.5) (11.5-14.5) Plt Count 825 H k/mm3 753 H k/mm3 (150-375) (150-375) MPV 8.5 fl 8.5 fl (7.4-10.4) (7.4-10.4) Immature Gran % (Auto) 2.2 H % 2.1 H % (0-0.5) (0-0.5) Neut % (Auto) 67.2 % 64.1 % (45.5-73.1) (45.5-73.1) Lymph % (Auto) 21.3 % 22.3 % (18.3-44.2) (18.3-44.2) Cameron % (Auto) 7.0 % 8.6 H % (2.6-8.5) (2.6-8.5) Eos % (Auto) 1.6 % 2.1 % (0-4.4) (0-4.4) Baso % (Auto) 0.7 % 0.8 % (0.2-1.2) (0.2-1.2) Lymph # (Auto) 3.18 K/mm3 2.70 K/mm3 (0.9-3.2) (0.9-3.2) Cameron # (Auto) 1.1 H K/mm3 1.0 H K/mm3 (0.1-0.6) (0.1-0.6) Eos # (Auto) 0.2 K/mm3
--- NOTE | 2023-06-29 14:29 | WPDHPUPDATE1 ---
History and Physical Update Update Date/Time: 06/29/23 14:29 History and Physical has been reviewed, including an updated exam of the patient. There are NO changes in the patient's condition. Risks, benefits, and alternatives have been discussed and questions answered. Patient agrees to proceed with procedure.
[2023-06-29] MEDS: ceFAZolin 2 GM/D5W 50 ML 2 GM/50 ML BAG IVPB ×2 (14:35→21:08)
[2023-06-29] MEDS: LACTATED RINGERS 1,000 ML 30 ML IV CONT (15:58)
--- NOTE | 2023-06-29 16:17 | W.PM.PROC2 ---
Procedure Note - Detailed Date of Procedure 06/29/23 Pre-op Diagnosis Right Hip Surgical Wound Dehiscence with subcutaneous seroma Post-op Diagnosis Same Procedure Performed Debridement right superficial wound dehiscence with evacuation of seroma Surgeon Christoph Mcleod MD Enterprise Infrastructure Architect Cristian Anesthesia General Description of Procedure Patient was identified and proper site identified. He was taken to the operating room and transferred to the or table placed him supine take care of anasarca extremities. After general anesthetic induction and intubation he was put into the left lateral decubitus position securing him with padded hip press. Care was taken to properly pad position is torso and extremities. Right lower extremities prepped and draped free in usual sterile fashion. The distal portion of the incision was reopened. There was a superficial seroma involving approximately the distal third the incision. It had well-defined borders. This was irrigated thoroughly. Surface was cleaned up using a rongeur and a sponge. Wound edge was prepared for repair. A 1/8th inch Hemovac drain was left deep taking care not to entrap it during the closure. The deeper layers of the subcu reapproximated with 2-0 Stratafix. Skin was closed with 2-0 Stratafix and 3-0 nylon interrupted mattress sutures. Drain was connected to the collection device. Sterile dressing was applied. Patient tolerated the procedure well. He was awakened, extubated and taken to recovery area in stable condition. There were no known intraoperative complications. Estimated blood loss was 50 milliliters. He received perioperative antibiotics. Estimated Blood Loss 50 Drains Yes (1/8 inch Hemovac) Packing No Pathology None sent Complications No immediate complications Condition Stable Disposition PACU [facility] Billing Surgery - Charge Forward: Surgery Billing ([id number])
[2023-06-29] MEDS: fentaNYL CITRATE INJ (*CRX) 100 MCG/2 ML VIAL 25 MCG IV PUSH ×4 (16:22→16:38)
[2023-06-29 16:46] LABS: Glucose Point of Care 100 mg/dl (65-105)
[2023-06-29] MEDS: SENNA/DOCUSATE SODIUM TABLET 2 TAB PO (17:47)
[2023-06-29] MEDS: HYDROcodone/acetaminophen (*CRX) 5-325 MG TABLET 1 TAB PO (17:48)
[2023-06-29] MEDS: ASPIRIN 81 MG ENTERIC TABLET PO (20:49)
[2023-06-29] MEDS: lamoTRIgine 100 MG TABLET 200 MG PO (20:49)
[2023-06-29] MEDS: SULFAMETHOXAZOLE/TRIMETHOPRIM 800/160 MG DS TABLET 1 TAB PO (20:49)
[2023-06-30] VITALS (7 sets, daily range): BP systolic 105–118; BP diastolic 63–72; PULSE 63–77; RESP 12–16; TEMP 36.1–36.7; O2SAT 95–99
[2023-06-30] MEDS: HYDROcodone/acetaminophen (*CRX) 5-325 MG TABLET 2 TAB PO ×3 (04:46→21:26)
[2023-06-30] MEDS: ceFAZolin 2 GM/D5W 50 ML 2 GM/50 ML BAG IVPB ×3 (05:10→21:26)
--- NOTE | 2023-06-30 06:22 | PC.NURSE ---
R hip had a lot of drainage this morning on enrique pad and dressing appears saturated. no output in hemovac. calling to inform surgeon.
--- NOTE | 2023-06-30 06:26 | PC.NURSE ---
called MD Mcleod's pager and left call back number.
--- NOTE | 2023-06-30 06:28 | PC.NURSE ---
MD Mcleod informed informed to change dressing
[2023-06-30 07:44] LABS: Glucose Point of Care 141 mg/dl (65-105)
[2023-06-30] MEDS: CARBAMAZEPINE XR 200 MG TAB.ER.12H 400 MG PO ×2 (08:51→21:29)
[2023-06-30] MEDS: SENNA/DOCUSATE SODIUM TABLET 2 TAB PO ×2 (08:51→18:10)
[2023-06-30] MEDS: CYCLOBENZAPRINE HCL 5 MG TABLET PO ×3 (08:52→18:10)
[2023-06-30] MEDS: ATORVASTATIN 40 MG TABLET PO (08:52)
[2023-06-30] MEDS: SULFAMETHOXAZOLE/TRIMETHOPRIM 800/160 MG DS TABLET 1 TAB PO ×2 (08:52→21:26)
[2023-06-30] MEDS: TAMSULOSIN HCL 0.4 MG CAPSULE PO (08:52)
[2023-06-30] MEDS: gemfibroziL 600 MG TABLET PO ×2 (08:52→18:10)
[2023-06-30] MEDS: metFORMIN HCL XR 500 MG TAB.SR.24H PO ×2 (08:52→18:10)
[2023-06-30] MEDS: METOPROLOL SUCCINATE EXT REL 50 MG TABCR PO (08:52)
[2023-06-30] MEDS: lamoTRIgine 100 MG TABLET 300 MG PO (08:52)
[2023-06-30] MEDS: TOPIRAMATE 100 MG TABLET PO ×2 (08:52→18:09)
[2023-06-30] MEDS: FAMOTIDINE 20 MG TABLET PO ×2 (08:53→21:26)
[2023-06-30] MEDS: CLOPIDOGREL BISULFATE 75 MG TABLET PO (08:56)
[2023-06-30] MEDS: PANTOPRAZOLE 40 MG TABLET PO (08:58)
[2023-06-30] MEDS: HYDROcodone/acetaminophen (*CRX) 5-325 MG TABLET 1 TAB PO (09:05)
--- NOTE | 2023-06-30 10:42 | PM.IMPN ---
Progress Note: A&P Assessment and Plan (1) Wound dehiscence, surgical: Code(s): T81.31XA - Disruption of external operation (surgical) wound, not elsewhere classified, initial encounter Status: Acute Assessment and Plan: Postop day 1 status post incision revision with drainage catheter placement (2) Closed subcapital fracture of neck of right femur: Qualifiers: Encounter type: initial encounter Qualified Code(s): S72.011A - Unspecified intracapsular fracture of right femur, initial encounter for closed fracture Code(s): S72.011A - Unspecified intracapsular fracture of right femur, initial encounter for closed fracture Status: Acute Assessment and Plan: Status post bipolar hip replacement on 06/18, receiving therapy services at [facility] (3) Type 2 diabetes mellitus: Qualifiers: Diabetes mellitus senior care insulin use: without middle or intermediate school principal use Diabetes mellitus complication status: with neurologic complications Diabetes mellitus complication detail: with polyneuropathy Qualified Code(s): E11.42 - Type 2 diabetes mellitus with diabetic polyneuropathy Code(s): E11.9 - Type 2 diabetes mellitus without complications Status: Acute Assessment and Plan: ACHS fingerstick glucose with sliding scale insulin. Patient upset about diabetic diet as he states he does not have diabetes. A1c 6.1 (4) History of seizures: Code(s): Z87.898 - Personal history of other specified conditions Status: Acute Assessment and Plan: Unknown date of last seizure, tramadol discontinued due to history of seizures (5) Essential hypertension: Code(s): I10 - Essential (primary) hypertension Status: Acute Assessment and Plan: Stable. Blood pressure reviewed 06/30 Plan Monitor drain output. Continue therapy services inpatient Discharge back to [facility] when OK with Dr. Mcleod Time Spent With Patient Time with patient: 25 - 35 minutes Subjective Date/time seen: 06/30/23 10:42 Interval history: Postop day 1 status post incision revision with seroma drainage and drainage catheter placement. Patient wants to go back to rehab facility. He denies any complaints at this time. Denies fever chills. Discussed with orthopedic surgeon Dr. Mcleod and patient cannot return to rehab facility yet due to large amount of drainage he had present. Dr. Mcleod wants to monitor drainage over the weekend. Review of Systems Review of Systems: All systems reviewed & are unremarkable except as noted in HPI and below Exam Narrative: - GENERAL: Pleasant male in no acute distress. Well-nourished. - EYES: EOMI. Anicteric. - HENT: Moist mucous membranes. - LUNGS: Clear to auscultation bilaterally, no wheezing, rhonchi, or rales. - CARDIOVASCULAR: Regular rate and rhythm. No murmur. No JVD. - ABDOMEN: Soft, non-tender and non-distended. No palpable masses. - EXTREMITIES: No peripheral edema, peripheral pulses intact 2+, nontender. Right hip wound bandage clean, dry, intact with drainage catheter in place, minimal drainage noted. - NEUROLOGIC: No focal neurological deficits. CN II-XII grossly intact. - PSYCHIATRIC: Awake, Alert and oriented x 3. Appropriate mood and affect. - SKIN: No rashes or lesions. Warm. - LYMPH: No cervical lymphadenopathy. Objective Data Vital Signs Vital Signs: Vital Signs - 24 hr 06/29/23 14:03 06/29/23 15:58 06/29/23 16:10 Temperature 36.8 C 36.1 C L Pulse Rate 69 97 67 Respiratory Rate 18 12 14 Blood Pressure 126/74 123/67 132/83 Pulse Oximetry 98 99 99 Oxygen Delivery Room Air Room Air Room Air 06/29/23 16:25 06/29/23 16:40 06/29/23 16:55 Temperature Pulse Rate 63 63 58 L Respiratory Rate 12 14 14 Blood Pressure 136/81 135/80 131/77 Pulse Oximetry 94 99 99 Oxygen Delivery Room Air Room Air Room Air 06/29/23 17:15 06/29/23 18:00 06/29/23 18:44 Temperature 35.8 C L 36.1 C L 36.2 C L Pulse Rate 63 77 8
[2023-06-30 11:19] LABS: Glucose Point of Care 103 mg/dl (65-105)
[2023-06-30] MEDS: ACETAMINOPHEN 325 MG TABLET 650 MG PO ×2 (12:27→18:09)
--- NOTE | 2023-06-30 14:56 | WPDANESPN ---
Anes - Prog Note Post-Op Date/Time: 06/30/23 14:56 Cardiovascular status: normal Respiratory status: normal Airway patency: baseline Mental status: baseline Post-Op hydration status: normal Vital Signs: Last Vital Signs Temp 36.4 C 06/30/23 14:35 Pulse 65 06/30/23 14:35 Resp 16 06/30/23 14:35 BP 106/72 06/30/23 14:35 Pulse Ox 99 06/30/23 14:35 O2 Del Method Room Air 06/30/23 10:08 Pain Score (VAS): 3/10 I/O: Intake & Output 06/29/23 06/30/23 06/30/23 23:59 07:59 15:59 Intake Total 870 800 360 Output Total 450 750 Balance 420 50 360 Laboratory Tests 06/29/23 05:52 06/29/23 05:52 06/29/23 06/30/23 06/30/23 16:44 07:30 11:06 POC Capillary Glucose 100 141 H 103 Post-procedural complaints: none Patient Feedback: Patient satisfied with anesthetic care.
--- NOTE | 2023-06-30 15:14 | PM.PNORT ---
Progress Note: A&P Assessment and Plan (1) Wound dehiscence, surgical: Qualifiers: Encounter type: subsequent encounter Qualified Code(s): T81.31XD - Disruption of external operation (surgical) wound, not elsewhere classified, subsequent encounter Code(s): T81.31XA - Disruption of external operation (surgical) wound, not elsewhere classified, initial encounter Status: Acute Assessment and Plan: Postop day one debridement closure right hip wound seroma. Minimal drainage in the drain. Wound itself looks quite good. Hip spica applied. We will see how he does over the course of the next couple of days. May well be able to be discharged home. Discussed with patient. Subjective Subjective Date/Time Seen: 06/30/23 15:14 Post Op day: 1 Interval history: Washout right hip seroma with drain placement and primary closure Exam Const: General: cooperative, comfortable and no acute distress Urinary Catheter: Urinary Catheter: patent and draining Extrem: Other: Moderate serosanguineous drainage distal right hip wound. Very little discomfort. Minimal drainage in the drain. Objective Data Vital Signs Vital Signs: Vital Signs - 24 hr 06/29/23 15:58 06/29/23 16:10 06/29/23 16:25 Temperature 97.0 F L Pulse Rate 97 67 63 Respiratory Rate 12 14 12 Blood Pressure 123/67 132/83 136/81 Pulse Oximetry 99 99 94 Oxygen Delivery Room Air Room Air Room Air 06/29/23 16:40 06/29/23 16:55 06/29/23 17:15 Temperature 96.5 F L Pulse Rate 63 58 L 63 Respiratory Rate 14 14 16 Blood Pressure 135/80 131/77 113/64 Pulse Oximetry 99 99 100 Oxygen Delivery Room Air Room Air 06/29/23 18:00 06/29/23 18:44 06/29/23 21:23 Temperature 97.0 F L 97.2 F L 98.6 F Pulse Rate 77 83 88 Respiratory Rate 17 16 Blood Pressure 112/67 116/70 134/63 Pulse Oximetry 99 98 95 Oxygen Delivery 06/29/23 20:00 06/30/23 02:31 06/30/23 05:23 Temperature 96.9 F L 98.0 F Pulse Rate 71 66 Respiratory Rate 12 13 Blood Pressure 112/64 118/63 Pulse Oximetry 95 95 97 Oxygen Delivery Room Air 06/30/23 08:15 06/30/23 08:52 06/30/23 10:08 Temperature 97.6 F Pulse Rate 63 68 Respiratory Rate 16 Blood Pressure 111/68 Pulse Oximetry 98 Oxygen Delivery Room Air 06/30/23 08:00 06/30/23 10:44 06/30/23 14:35 Temperature 97.8 F 97.6 F Pulse Rate 64 65 Respiratory Rate 16 16 Blood Pressure 105/71 106/72 Pulse Oximetry 99 99 Oxygen Delivery Room Air Intake/Output Intake/Output: Intake & Output 06/27/23 06/28/23 06/29/23 06/30/23 23:59 23:59 23:59 23:59 Intake Total 1220 / 1220 1160 / 1160 Output Total 2500 / 2500 750 / 750 Balance -1280 / -1280 410 / 410 Meds/Results Medications: Active Medications Generic Name Dose Route Start Last Admin Trade Name Freq PRN Reason Stop Dose Admin Acetaminophen 650 mg 06/29/23 00:00 06/30/23 12:27 Acetaminophen 325 Mg Tablet PO 650 mg Q6H WES Administration Hydrocodone Bitart/Acetaminophen 2 tab 06/28/23 22:44 06/30/23 14:42 Hydrocodone/Acetaminophen (*Crx) 5-325 Mg Tablet PO 2 tab Q6H PRN Administration Pain (Scale Score 7-10) Hydrocodone Bitart/Acetaminophen 1 tab 06/28/23 22:44 06/30/23 09:05 Hydrocodone/Acetaminophen (*Crx) 5-325 Mg Tablet PO 1 tab Q3H PRN Administration Pain Rated 4-6 Al Hydrox/Mg Hydrox/Simethicone 30 ml 06/28/23 21:31 Mag Hydrox/Al Hydrox/Simeth 30 Ml Udc PO QID PRN Dyspepsia Aspirin 81 mg 06/29/23 21:00 06/29/23 20:49 Aspirin 81 Mg Enteric Tablet PO 81 mg HS WES Administration Atorvastatin Calcium 40 mg 06/29/23 09:00 06/30/23 08:52 Atorvastatin 40 Mg Tablet PO 40 mg DAILY WES Administration Carbamazepine 400 mg 06/29/23 09:00 06/30/23 08:51 Carbamazepine Xr 200 Mg Tab.Er.12h PO 400 mg Q12HR WES Administration Clopidogrel Bisulfate 75 mg 06/29/23 09:00 06/30/23 08:56 Clopidogrel Bisulfate 75 M
[2023-06-30 16:34] LABS: Glucose Point of Care 132 mg/dl (65-105)
[2023-06-30 21:07] LABS: Glucose Point of Care 176 mg/dl (65-105)
[2023-06-30] MEDS: ASPIRIN 81 MG ENTERIC TABLET PO (21:24)
[2023-06-30] MEDS: lamoTRIgine 100 MG TABLET 200 MG PO (21:25)
[2023-07-01] MEDS: ACETAMINOPHEN 325 MG TABLET 650 MG PO ×4 (00:17→17:14)
[2023-07-01] MEDS: ceFAZolin 2 GM/D5W 50 ML 2 GM/50 ML BAG IVPB ×3 (05:31→21:24)
[2023-07-01 05:43] VITALS: BP 118/55; PULSE 62; RESP 15; TEMP 36.4; O2SAT 96
[2023-07-01 07:12] LABS: Basophils Absolute Auto 0.1 K/mm3 (0.0-0.1); Basophils Percent Auto 0.9 % (0.2-1.2); Eosinophils Absolute Auto 0.4 K/mm3 (0-0.3); Eosinophils Percent Auto 3.3 % (0-4.4); Hematocrit 31.4 % (42.0-52.0); Hemoglobin 9.7 g/dL (14.0-18.0); Immature Granulocyte Absolute 0.24 K/mm3 (0.00-0.031); Immature Granulocyte Percent A 1.9 % (0-0.5); Lymphocytes Absolute Auto 2.26 K/mm3 (0.9-3.2); Lymphocytes Percent Auto 17.8 % (18.3-44.2); Mean Corpuscular HGB Conc 30.9 g/dl (32-36); Mean Corpuscular Hemoglobin 31.1 pg (26-34); Mean Corpuscular Volume 100.6 fl (80-100); Mean Platelet Volume 8.5 fl (7.4-10.4); Monocytes Absolute Auto 1.1 K/mm3 (0.1-0.6); Monocytes Percent Auto 8.4 % (2.6-8.5); Neutrophils Absolute Auto 8.6 K/mm3 (1.3-6.7); Neutrophils Percent Auto 67.7 % (45.5-73.1); Platelet Count Result 740 k/mm3 (150-375); Red Blood Count 3.12 M/mm3 (4.6-6.20); Red Cell Distribution Width 13.9 % (11.5-14.5); White Blood Count 12.7 K/mm3 (4.5-10.0)
[2023-07-01 07:21] LABS: Anion Gap 11 mmol/L (8-16); Blood Urea Nitrogen 13 mg/dL (9-20); Calcium 8.8 mg/dL (8.4-10.2); Carbon Dioxide 19 mmol/L (22-30); Chloride 107 mmol/L (98-107); Estimated CRCL calculation 94 ml/min; Estimated Glomerular Filt Rate > 60; Glucose 130 mg/dL (65-110); Potassium 4.4 mmol/L (3.4-5.0); Sodium 137 mmol/L (137-145)
[2023-07-01 07:33] LABS: Glucose Point of Care 134 mg/dl (65-105)
--- NOTE | 2023-07-01 08:30 | PM.PNORT ---
Progress Note: A&P Assessment and Plan (1) Wound dehiscence, surgical: Qualifiers: Encounter type: subsequent encounter Qualified Code(s): T81.31XD - Disruption of external operation (surgical) wound, not elsewhere classified, subsequent encounter Code(s): T81.31XA - Disruption of external operation (surgical) wound, not elsewhere classified, initial encounter Status: Acute Plan Postop day two washout and closure right hip seroma. Doing very well. Plan will be to remove the drain early tomorrow morning as well as the Madison. I will be in here late morning to show the patient and his significant other how to properly apply the dressing. Possibly will be able to go home tomorrow if his able to void and wound continues to look good. Subjective Subjective Date/Time Seen: 07/01/23 08:30 Post Op day: 2 Interval history: Washout and closure of right hip subcu seroma. Review of Systems Review of Systems: ROS unobtainable: Yes other (No change) Exam Const: General: cooperative, comfortable and no acute distress GI: Inspection: non-distended Urinary Catheter: Urinary Catheter: patent and draining Extrem: Other: Right hip wound dry. Minimal primarily serous drainage in the drain tube. Hip spica dressing in place. Neurovascular status right lower extremity unremarkable Objective Data Vital Signs Vital Signs: Vital Signs - 24 hr 06/30/23 08:52 06/30/23 10:08 06/30/23 10:44 Temperature 97.8 F Pulse Rate 68 64 Respiratory Rate 16 Blood Pressure 105/71 Pulse Oximetry 99 Oxygen Delivery Room Air 06/30/23 14:35 06/30/23 22:00 06/30/23 20:00 Temperature 97.6 F 98.1 F Pulse Rate 65 77 Respiratory Rate 16 14 Blood Pressure 106/72 115/64 Pulse Oximetry 99 98 Oxygen Delivery Room Air 07/01/23 05:43 Temperature 97.6 F Pulse Rate 62 Respiratory Rate 15 Blood Pressure 118/55 L Pulse Oximetry 96 Oxygen Delivery Intake/Output Intake/Output: Intake & Output 06/28/23 06/29/23 06/30/23 07/01/23 23:59 23:59 23:59 23:59 Intake Total 1220 / 1220 1480 / 1480 800 / 800 Output Total 2500 / 2500 1500 / 1500 750 / 750 Balance -1280 / -1280 -20 / -20 50 / 50 Meds/Results Medications: Active Medications Generic Name Dose Route Start Last Admin Trade Name Freq PRN Reason Stop Dose Admin Acetaminophen 650 mg 06/29/23 00:00 07/01/23 05:32 Acetaminophen 325 Mg Tablet PO 650 mg Q6H WES Administration Hydrocodone Bitart/Acetaminophen 2 tab 06/28/23 22:44 06/30/23 21:26 Hydrocodone/Acetaminophen (*Crx) 5-325 Mg Tablet PO 2 tab Q6H PRN Administration Pain (Scale Score 7-10) Hydrocodone Bitart/Acetaminophen 1 tab 06/28/23 22:44 06/30/23 09:05 Hydrocodone/Acetaminophen (*Crx) 5-325 Mg Tablet PO 1 tab Q3H PRN Administration Pain Rated 4-6 Al Hydrox/Mg Hydrox/Simethicone 30 ml 06/28/23 21:31 Mag Hydrox/Al Hydrox/Simeth 30 Ml Udc PO QID PRN Dyspepsia Aspirin 81 mg 06/29/23 21:00 06/30/23 21:24 Aspirin 81 Mg Enteric Tablet PO 81 mg HS WES Administration Atorvastatin Calcium 40 mg 06/29/23 09:00 06/30/23 08:52 Atorvastatin 40 Mg Tablet PO 40 mg DAILY WES Administration Carbamazepine 400 mg 06/29/23 09:00 06/30/23 21:29 Carbamazepine Xr 200 Mg Tab.Er.12h PO 400 mg Q12HR WES Administration Clopidogrel Bisulfate 75 mg 06/29/23 09:00 06/30/23 08:56 Clopidogrel Bisulfate 75 Mg Tablet PO 75 mg DAILY WES Administration Cyclobenzaprine HCl 5 mg 06/29/23 09:00 06/30/23 18:10 Cyclobenzaprine Hcl 5 Mg Tablet PO 5 mg TID WES Administration Dextrose 12.5 gm 06/28/23 22:04 Dextrose 50% 25 Gm/50 Ml Syringe IV PUSH PRN PRN Hypoglycemia Protocol Famotidine 20 mg 06/29/23 09:00 06/30/23 21:26 Famotidine 20 Mg Tablet PO 20 mg Q12HR WES Administration Gemfibrozil 600 mg 06/29/23 09:00 06/30/23 18:10 Gemfibrozil 600 Mg Table
[2023-07-01 08:52] VITALS: PULSE 60
[2023-07-01] MEDS: FAMOTIDINE 20 MG TABLET PO ×2 (08:52→20:51)
[2023-07-01] MEDS: gemfibroziL 600 MG TABLET PO ×2 (08:52→17:11)
[2023-07-01] MEDS: SENNA/DOCUSATE SODIUM TABLET 2 TAB PO (08:52)
[2023-07-01] MEDS: CARBAMAZEPINE XR 200 MG TAB.ER.12H 400 MG PO ×2 (08:52→20:52)
[2023-07-01] MEDS: METOPROLOL SUCCINATE EXT REL 50 MG TABCR PO (08:52)
[2023-07-01] MEDS: CYCLOBENZAPRINE HCL 5 MG TABLET PO ×3 (08:53→17:11)
[2023-07-01] MEDS: ATORVASTATIN 40 MG TABLET PO (08:53)
[2023-07-01] MEDS: TAMSULOSIN HCL 0.4 MG CAPSULE PO (08:53)
[2023-07-01] MEDS: PANTOPRAZOLE 40 MG TABLET PO (08:53)
[2023-07-01] MEDS: TOPIRAMATE 100 MG TABLET PO ×2 (08:53→17:11)
[2023-07-01] MEDS: CLOPIDOGREL BISULFATE 75 MG TABLET PO (08:53)
[2023-07-01] MEDS: metFORMIN HCL XR 500 MG TAB.SR.24H PO ×2 (08:53→17:11)
[2023-07-01] MEDS: HYDROcodone/acetaminophen (*CRX) 5-325 MG TABLET 1 TAB PO ×4 (09:39→20:51)
--- NOTE | 2023-07-01 09:54 | PM.IMPN ---
Progress Note: A&P Assessment and Plan (1) Wound dehiscence, surgical: Qualifiers: Encounter type: subsequent encounter Qualified Code(s): T81.31XD - Disruption of external operation (surgical) wound, not elsewhere classified, subsequent encounter Code(s): T81.31XA - Disruption of external operation (surgical) wound, not elsewhere classified, initial encounter Status: Acute Assessment and Plan: Postop day two washout and closure right hip seroma. Doing very well. Plan will be to remove the drain early tomorrow morning as well as the Watts. I will be in here late morning to show the patient and his significant other how to properly apply the dressing. Possibly will be able to go home tomorrow if his able to void and wound continues to look good. 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 Patient upset about diabetic diet as he states he does not have diabetes. A1c 6.1 (4) History of seizures: Code(s): Z87.898 - Personal history of other specified conditions Status: Acute Assessment and Plan: Unknown date of last seizure, tramadol discontinued due to history of seizures (5) Essential hypertension: Code(s): I10 - Essential (primary) hypertension Status: Acute Assessment and Plan: Stable. Blood pressure reviewed 07/01 Plan Monitor drain output. Continue therapy services inpatient Drain removal and Watts catheter removal tomorrow Time Spent With Patient Time with patient: 25 - 35 minutes Subjective Date/time seen: 07/01/23 09:54 Interval history: Patient reports Ortho is planning to pull drain and watts catheter tomorrow and discharge home. Patient reports he will need a walker for use at home. Patient denies any other needs at this time. Review of Systems Review of Systems: All systems reviewed & are unremarkable except as noted in HPI and below Exam Narrative: - GENERAL: Pleasant male in no acute distress. Well-nourished. - EYES: EOMI. Anicteric. - HENT: Moist mucous membranes. - LUNGS: Clear to auscultation bilaterally, no wheezing, rhonchi, or rales. - CARDIOVASCULAR: Regular rate and rhythm. No murmur. No JVD. - ABDOMEN: Soft, non-tender and non-distended. No palpable masses. - EXTREMITIES: No peripheral edema, peripheral pulses intact 2+, nontender. Right hip wound dry. Minimal primarily serous drainage in the drain tube. Hip spica dressing in place. Neurovascular status right lower extremity unremarkable - NEUROLOGIC: No focal neurological deficits. CN II-XII grossly intact. - PSYCHIATRIC: Awake, Alert and oriented x 3. Appropriate mood and affect. - SKIN: No rashes or lesions. Warm. - LYMPH: No cervical lymphadenopathy. Objective Data Vital Signs Vital Signs: Vital Signs - 24 hr 06/30/23 10:08 06/30/23 10:44 06/30/23 14:35 Temperature 36.6 C 36.4 C Pulse Rate 64 65 Respiratory Rate 16 16 Blood Pressure 105/71 106/72 Pulse Oximetry 99 99 Oxygen Delivery Room Air 06/30/23 22:00 06/30/23
[2023-07-01] MEDS: lamoTRIgine 100 MG TABLET 300 MG PO (10:02)
[2023-07-01 11:30] LABS: Glucose Point of Care 123 mg/dl (65-105)
--- NOTE | 2023-07-01 13:59 | PCOTNOTE ---
Attempted to see pt for Occupational Therapy treatment. Pt declined to participate in any therapeutic activities, self care tasks, and/or strengthening. Pt reports that he is aware of how to dress himself since injury with the appropriate AE and has recently been receiving inpatient therapy at [facility], therefore is not needing to work on any balance or strengthening at this time. Pt states that he is most concern about needing a w/w from his insurance company prior to d/c home.
[2023-07-01 14:00] VITALS: BP 131/74; PULSE 82; RESP 16; TEMP 36.5; O2SAT 100
[2023-07-01 17:09] LABS: Glucose Point of Care 99 mg/dl (65-105)
--- NOTE | 2023-07-01 19:14 | PC.NURSE ---
report received from Pennie MURILLO informed MD Mcleod will change dressing in AM. Remove Madison and Hemovac in am.
[2023-07-01 20:00] VITALS: PULSE 82; RESP 16; O2SAT 100
[2023-07-01 20:23] VITALS: BP 124/79; PULSE 72; RESP 16; TEMP 36.6; O2SAT 99
[2023-07-01] MEDS: lamoTRIgine 100 MG TABLET 200 MG PO (20:51)
[2023-07-01] MEDS: ASPIRIN 81 MG ENTERIC TABLET PO (20:52)
[2023-07-01 21:12] LABS: Glucose Point of Care 130 mg/dl (65-105)
[2023-07-02 04:30] VITALS: BP 124/69; PULSE 66; RESP 16; TEMP 36.3; O2SAT 98
[2023-07-02] MEDS: HYDROcodone/acetaminophen (*CRX) 5-325 MG TABLET 1 TAB PO ×2 (05:02→09:05)
[2023-07-02] MEDS: ceFAZolin 2 GM/D5W 50 ML 2 GM/50 ML BAG IVPB (05:02)
[2023-07-02] MEDS: ACETAMINOPHEN 325 MG TABLET 650 MG PO (05:02)
--- NOTE | 2023-07-02 05:29 | PC.NURSE ---
watts and hemovac removed this AM.
[2023-07-02 06:39] LABS: Basophils Absolute Auto 0.1 K/mm3 (0.0-0.1); Basophils Percent Auto 0.8 % (0.2-1.2); Eosinophils Absolute Auto 0.4 K/mm3 (0-0.3); Eosinophils Percent Auto 3.1 % (0-4.4); Hematocrit 31.4 % (42.0-52.0); Hemoglobin 9.6 g/dL (14.0-18.0); Immature Granulocyte Absolute 0.23 K/mm3 (0.00-0.031); Immature Granulocyte Percent A 1.8 % (0-0.5); Lymphocytes Absolute Auto 2.28 K/mm3 (0.9-3.2); Lymphocytes Percent Auto 17.7 % (18.3-44.2); Mean Corpuscular HGB Conc 30.6 g/dl (32-36); Mean Corpuscular Hemoglobin 30.4 pg (26-34); Mean Corpuscular Volume 99.4 fl (80-100); Mean Platelet Volume 8.2 fl (7.4-10.4); Monocytes Percent Auto 7.9 % (2.6-8.5); Neutrophils Absolute Auto 8.8 K/mm3 (1.3-6.7); Neutrophils Percent Auto 68.7 % (45.5-73.1); Platelet Count Result 716 k/mm3 (150-375); Red Blood Count 3.16 M/mm3 (4.6-6.20); Red Cell Distribution Width 13.8 % (11.5-14.5); White Blood Count 12.9 K/mm3 (4.5-10.0)
[2023-07-02 06:52] LABS: Anion Gap 12 mmol/L (8-16); Blood Urea Nitrogen 12 mg/dL (9-20); Carbon Dioxide 18 mmol/L (22-30); Chloride 106 mmol/L (98-107); Estimated CRCL calculation 94 ml/min; Estimated Glomerular Filt Rate > 60; Glucose 137 mg/dL (65-110); Potassium 4.3 mmol/L (3.4-5.0); Sodium 136 mmol/L (137-145)
[2023-07-02 07:31] LABS: Glucose Point of Care 156 mg/dl (65-105)
[2023-07-02 08:56] VITALS: PULSE 64
[2023-07-02] MEDS: METOPROLOL SUCCINATE EXT REL 50 MG TABCR PO (08:56)
[2023-07-02] MEDS: gemfibroziL 600 MG TABLET PO (08:56)
[2023-07-02] MEDS: ATORVASTATIN 40 MG TABLET PO (08:57)
[2023-07-02] MEDS: SENNA/DOCUSATE SODIUM TABLET 2 TAB PO (08:58)
[2023-07-02] MEDS: CYCLOBENZAPRINE HCL 5 MG TABLET PO (08:58)
[2023-07-02] MEDS: CARBAMAZEPINE XR 200 MG TAB.ER.12H 400 MG PO (08:58)
[2023-07-02] MEDS: PANTOPRAZOLE 40 MG TABLET PO (08:59)
[2023-07-02] MEDS: TOPIRAMATE 100 MG TABLET PO (08:59)
[2023-07-02] MEDS: TAMSULOSIN HCL 0.4 MG CAPSULE PO (08:59)
[2023-07-02] MEDS: FAMOTIDINE 20 MG TABLET PO (08:59)
[2023-07-02] MEDS: lamoTRIgine 100 MG TABLET 300 MG PO (08:59)
[2023-07-02] MEDS: CLOPIDOGREL BISULFATE 75 MG TABLET PO (08:59)
[2023-07-02] MEDS: metFORMIN HCL XR 500 MG TAB.SR.24H PO (08:59)
--- NOTE | 2023-07-02 11:09 | PM.DS ---
DS: Admitting Diagnosis Discharge Date July 02, 2023 Admitting Diagnosis Right hip surgical wound dehiscence DS: Discharge Diagnosis Discharge Diagnosis (1) Wound dehiscence, surgical: Qualifiers: Encounter type: subsequent encounter Qualified Code(s): T81.31XD - Disruption of external operation (surgical) wound, not elsewhere classified, subsequent encounter Code(s): T81.31XA - Disruption of external operation (surgical) wound, not elsewhere classified, initial encounter Status: Acute Plan Patient will be discharged home. Made excellent progress in the hospital. Continue with walker. Daily pressure dressing to right hip wound. His significant other Georgina was shown how to do this. Follow-up by phone call later this week and then in person next week in the office. DS: Summary Hospital Course Reason for hospitalization: Debridement and closure of right hip wound seroma Hospital Course: The patient was admitted on June 28, 2023 and then taken to surgery the following day June 29, 2023 for debridement and closure right hip wound. Drain was placed and was removed on postop day three. Catheter was able be removed prior to discharge and he was able to void. Hospital course uneventful with steady progress made throughout the hospitalization. He will be discharged home. Follow-up will be by telephone later this week and then in person the following week. Status at Discharge Functional status at discharge: uses cane/walker Overall status at discharge: patient is not back to baseline Time Spent with Patient Time attestation: Total time spent providing and/or coordinating discharge services: Exam Const: General: cooperative and comfortable Resp: Effort & Inspection: normal respiratory effort and able to speak in complete sentences GI: Inspection: normal to inspection : Other: Madison removed this morning. Patient able to void three separate times without difficulty. Extrem: Other: Right hip wound was dry. The gauze dressing was stuck to it and cause some superficial bleeding. Hip spica reapplied. No erythema and only minimal swelling noted in the thigh. Scant drainage from the drain hole. Neurovascular status unremarkable right lower extremity. DS: Data Data Completed and Pending Labs on day of discharge: Labs from last 24 hours 07/02/23 07/02/23 07/01/23 07:25 06:26 20:20 WBC 12.9 H RBC 3.16 L Hgb 9.6 L Hct 31.4 L MCV 99.4 MCH 30.4 MCHC 30.6 L RDW 13.8 Plt Count 716 H MPV 8.2 Immature Gran % (Auto) 1.8 H Neut % (Auto) 68.7 Lymph % (Auto) 17.7 L [place] % (Auto) 7.9 Eos % (Auto) 3.1 Baso % (Auto) 0.8 Lymph # (Auto) 2.28 [place] # (Auto) 1.0 H Eos # (Auto) 0.4 H Baso # (Auto) 0.1 Abs Immat Gran (auto) 0.23 H Absolute Neuts (auto) 8.8 H Absolute Nucleated RBC 0.0 Nucleated RBC % 0.0 Sodium 136 L Potassium 4.3 Chloride 106 Carbon Dioxide 18 L Anion Gap 12 BUN 12 Creatinine 0.80 Estim Creat Clear Calc 94 Estimated GFR > 60 Glucose 137 H POC Capillary Glucose 156 H 130 H Calcium 9.0 07/01/23 07/01/23 17:03 11:23 WBC RBC Hgb Hct MCV MCH MCHC RDW Plt Count MPV Immature Gran % (Auto) Neut % (Auto) Lymph % (Auto) [place] % (Auto) Eos % (Auto) Baso % (Auto) Lymph # (Auto) [place] # (Auto) Eos # (Auto) Baso # (Auto) Abs Immat Gran (auto) Absolute Neuts (auto) Absolute Nucleated RBC Nucleated RBC % Sodium Potassium Chloride Carbon Dioxide Anion Gap BUN Creatinine Estim Creat Clear Calc Estimated GFR Glucose POC Capillary Glucose 99 123 H Calcium Discharge Plan Discharge Attending physician on discharge: Christoph Mcleod Consulting providers: Art Garcia; J Carlos Roth; Christoph Mcleod; Drew Senior Discharging Clinician: Christoph Mcleod
--- NOTE | 2023-07-02 11:12 | PM.DS ---
DS: Summary Time Spent with Patient Time attestation: Total time spent providing and/or coordinating discharge services: DS: Data Data Completed and Pending Labs on day of discharge: Labs from last 24 hours 07/02/23 07/02/23 07/01/23 07:25 06:26 20:20 WBC 12.9 H RBC 3.16 L Hgb 9.6 L Hct 31.4 L MCV 99.4 MCH 30.4 MCHC 30.6 L RDW 13.8 Plt Count 716 H MPV 8.2 Immature Gran % (Auto) 1.8 H Neut % (Auto) 68.7 Lymph % (Auto) 17.7 L Wake % (Auto) 7.9 Eos % (Auto) 3.1 Baso % (Auto) 0.8 Lymph # (Auto) 2.28 Wake # (Auto) 1.0 H Eos # (Auto) 0.4 H Baso # (Auto) 0.1 Abs Immat Gran (auto) 0.23 H Absolute Neuts (auto) 8.8 H Absolute Nucleated RBC 0.0 Nucleated RBC % 0.0 Sodium 136 L Potassium 4.3 Chloride 106 Carbon Dioxide 18 L Anion Gap 12 BUN 12 Creatinine 0.80 Estim Creat Clear Calc 94 Estimated GFR > 60 Glucose 137 H POC Capillary Glucose 156 H 130 H Calcium 9.0 07/01/23 07/01/23 17:03 11:23 WBC RBC Hgb Hct MCV MCH MCHC RDW Plt Count MPV Immature Gran % (Auto) Neut % (Auto) Lymph % (Auto) Wake % (Auto) Eos % (Auto) Baso % (Auto) Lymph # (Auto) Wake # (Auto) Eos # (Auto) Baso # (Auto) Abs Immat Gran (auto) Absolute Neuts (auto) Absolute Nucleated RBC Nucleated RBC % Sodium Potassium Chloride Carbon Dioxide Anion Gap BUN Creatinine Estim Creat Clear Calc Estimated GFR Glucose POC Capillary Glucose 99 123 H Calcium Discharge Plan Discharge Attending physician on discharge: Christoph Mcleod Consulting providers: Art Garcia; J Carlos Roth; Christoph Mcleod; Drew Senior Discharging Clinician: Christoph Mcleod Anticipated Discharge Date/Time: 07/02/23 10:57 Patient Disposition: Home, Self-Care Activity: no shower Diet: no preference Wound Care Instructions: follow printed instructions Discharge Instructions: Please call [facility] at as soon as possible to arrange for follow-up appointment to be seen in 1 1/2 weeks. Also, call the office with any orthopedic/surgical related questions prior to follow-up. We will contact you at the end of this week to see how things are going. Use Neosporin liberally along the incision each time you change the dressing. Walker full-time. Take the oral antibiotics as prescribed. If you have any urinary difficulties contact Dr. Senior's office. Continue with her aspirin and Plavix as you had previously. By the end of the week I would anticipate you should be able to use arthritis formula Tylenol one tablet up to 3 times a day for pain relief. Spica dressin. Use double length 6 inch elastic dressing 2. start at mid thigh, use a spiral turn, wrap in a figure 8 toward the pelvis 3. bring dressing to waist and continue in a figure 8 including the thigh 4. end on the waist or anterior thigh 5. secure with double strips of tape laterally and medially change daily or as needed. Patient Instructions: Antibiotic Form, Clopidogrel (By mouth), How to Stop Smoking (DC), Wound Dehiscence (DC), Safe Use of Anticoagulants (DC) Stand Alone Forms: General Discharge Information Follow-up/Referrals: Christoph Mcleod MD [Physician] - Discharge Medications: New hydrocodone-acetaminophen 7.5-325 mg tablet 1 tablet PO Q6H PRN (Reason: pain) Qty: 30 0RF cephalexin 500 mg capsule 1,000 mg PO Q12H 7 Days Qty: 28 0RF Continued lamotrigine 200 mg tablet 300 mg PO DAILY carbamazepine 400 mg tablet extended release 12 hr 400 mg PO BID metformin 500 mg tablet extended release 24 hr 500 mg PO BID clopidogrel 75 mg tablet 75 mg PO DAILY atorvastatin 40 mg tablet 40 mg PO DAILY metoprolol succinate 50 mg tablet extended release 24 hr 50 mg PO DAILY aspirin 81 mg table
[2023-07-02 11:25] LABS: Glucose Point of Care 142 mg/dl (65-105)
--- NOTE | 2023-07-02 12:17 | PC.NURSE ---
Pt discharged home with significant other. Pt had dressing change performed by Dr. Mcleod this morning and both pt and significant other were educated on how to properly changed the dressing. Pt was educated on anticoagulation medication. Discharge instructions were reviewed with patient and pt was instructed to call office and set up follow up appointment in 1.5 weeks. Pt denied any questions at this time. Pt IV was removed tip intact. Pt tolerated well. Pt was monitored for any changes in status while here.
== END 2023-07-02 12:15 | disposition home or self-care (01) | DRG 909 ==
LOC: ANHED 20:30 → ANH3MEDSUR 21:27
PROVIDERS: Nurse Practitioner; Admitting Provider Student in an Organized Health Care Education/Training Program; Emergency Provider Physician Assistant; PCP Internal Medicine; Visit Provider Orthopaedic Surgery
PROC: 0JQL0ZZ Repair Right Upper Leg Subcutaneous Tissue and Fascia, Open Approach (ICD-10-PCS; CPT 27125; principal; 2023-06-29 15:00)
DX: T81.31XA Disruption of external operation (surgical) wound, not elsewhere classified, initial encounter (principal); Z96.641 Presence of right artificial hip joint; N40.0 Benign prostatic hyperplasia without lower urinary tract symptoms; E11.42 Type 2 diabetes mellitus with diabetic polyneuropathy; I10 Essential (primary) hypertension; E78.5 Hyperlipidemia, unspecified; I73.9 Peripheral vascular disease, unspecified; F17.210 Nicotine dependence, cigarettes, uncomplicated; G40.909 Epilepsy, unspecified, not intractable, without status epilepticus; I25.10 Atherosclerotic heart disease of native coronary artery without angina pectoris; Z79.84 Long term (current) use of oral hypoglycemic drugs; Z79.82 Long term (current) use of aspirin; Z79.02 Long term (current) use of antithrombotics/antiplatelets
CPT/HCPCS: 36415; 80048; 80053; 82948; 83036; 83735; 84145; 85025; 85610; 85652; 85730; 86140; 86850; 86900; 86901; 96360; 96361; 96365; 97110; 97116; 97161; 97165; 99285; A9270; G0378; J0690; J2250; J2405; J2704; J3010; J7030; J7120